=== PATIENT | female | born 1995 | race Caucasian/White ===

== ENCOUNTER 2017-06-17 08:58 | Emergency (ER) | payer OTHER, SELFPAY ==
[2017-06-17 09:09] VITALS: BP 130/97; PULSE 100; RESP 20; TEMP 36.8; O2SAT 100; BMI 26.5
[2017-06-17 09:18] LABS: Apearance,Urine Clear (Clear); Bilirubin,Urine Negative (Negative); Blood, Urine 3+ (Negative); Color,Urine Orange (Yellow); Glucose,Urine (UA) Negative (Negative); Ketones,Urine Negative (Negative); Protein,Urine Negative (Negative)
[2017-06-17 09:19] LABS: UTC Leukocyte Esterase,Urine 1+ (Negative); UTC Nitrate,Urine Positive (Negative); Urobilinogen,Urine 0.2 EU/dl (0.2)
--- NOTE | 2017-06-17 09:26 | HMH.EDUTC ---
[facility] [place] Clinical Impression: UTI (urinary tract infection) Qualifiers: Urinary tract infection type: acute cystitis Hematuria presence: with hematuria Qualified Code(s): N30.01 - Acute cystitis with hematuria Disposition: Home, Self-Care Condition on Discharge: Good Instructions: DI for Urinary Tract Infection (UTI) Additional Instructions: * increase fluids, Water and NOT soda or tea * Start antibiotic immediately and be sure to take as ordered for the FULL length of time although you should start to see improvement over the next 48 hours. * pyridium OR Azo as needed. NOT BOTH!!! Remember this will turn your urine ORANGE, this is normal but will stain whatever it gets on. this includes tears and contacts. Try not to wear contacts due to risk of staining orange. * You should not need the pyridium or azo longer than 48 hours. If so, follow up with primary care to review urine culture and ensure antibiotic is adequate * Be SURE to follow up anytime for new or worsening symptoms, AND in 48 hours for urine culture results AND in 10-14 days to repeat UA and ensure infection resolved and blood no longer present. * Call Dr. Barlow to discuss bleeding post nexplanon insertion. Not healthy to be using tampons all day, everyday for weeks at a time. Discussed TSS and the risks associated w/ prolonged tampon use. Encouraged to wear pads if possible but need to call and discuss bleeding with Dr. Barlow to ensure expected results. * Be sure to let your PCP (or whoever you follow up with) know we sent urine culture so they can request records and ensure you are on the appropriate antibiotic if you are not getting better or getting worse!!! Prescriptions: Sulfamethoxazole/Trimethoprim [Bactrim DS tablet] 1 each PO BID #14 tab Time of Disposition: 09:45 Medical Decision Making Vital Signs: 06/17/17 09:09 Temperature 98.2 F Temperature Source Temporal Artery Scan Pulse Rate [Right] 100 H Respiratory Rate 20 Blood Pressure [Right Arm] 130/97 Blood Pressure Mean [Right Arm] 108 Blood Pressure Source [Right Arm] Automatic Cuff Blood Pressure Position [Right Arm] Sitting 02 Sat by Pulse Oximetry 100 Oxygen Delivery Method Room Air - Lab Data Lab results reviewed: Yes: I reviewed the patient's lab results. Lab Results 06/17/17 09:15: Urine Color [place], Urine Appearance Clear, Urine pH 7.0, Ur Specific [place] 1.020, Urine Protein Negative, Urine Glucose (UA) Negative, Urine Ketones Negative, Urine Blood 3+, Urine Nitrate Positive A, Urine Bilirubin Negative, Urine Urobilinogen 0.2, Ur Leukocyte Esterase 1+ A Orders (Tests/Meds): ORDERS Category Date Time Status Urine Culture Stat Micro 06/17/17 09:16 Ordered - Amadeo Inquiry Pt receiving controlled substance: No [facility] [place] - General Stated complaint: poss UTI Time Seen by Provider: 06/17/17 09:26 Mode of Arrival: Ambulatory Source of Information: Patient Limitations: No Limitations Description of Symptoms (Recalled from Triage Doc. by RN): DYSURIA BEGAN YESTERDAY HEENT Symptoms (Recalled from RN notes): No Resp Symptoms (Recalled from RN notes): No Skin Symptoms (Recalled from RN notes): No MS Symptoms (Recalled from RN notes): No Functional Status (Recalled from RN notes): N - History of Present Illness Provider Complaint: c/o I think a UTI . Dysuria starting yesterday. Increased fluid intake. Seemed to help but woke up this morning w/ dysuria 10 times worse and associated w/ urinary frequency, urgency and hesitancy. Has taken both pyridium and azo this morning. Dysuria somewhat improved. Hx of UTIs. Last one over 3 months ago. Initially were contributed to not voiding after intercourse. Had nexplanon placed in Apr. Bleeding most days since. Wearing tampons frequently. Currently menstruating. Wondering if could be due to this. Has not discussed bleeding with OB, Dr. Barlow. - Related Data Previous Rx's Medication Instructions Recorded Sulfamet
--- NOTE | 2017-06-17 09:36 | ED_ITS ---
[facility] [place] Clinical Impression: UTI (urinary tract infection) Qualifiers: Urinary tract infection type: acute cystitis Hematuria presence: with hematuria Qualified Code(s): N30.01 - Acute cystitis with hematuria Disposition: Home, Self-Care Condition on Discharge: Good Instructions: DI for Urinary Tract Infection (UTI) Additional Instructions: * increase fluids, Water and NOT soda or tea * Start antibiotic immediately and be sure to take as ordered for the FULL length of time although you should start to see improvement over the next 48 hours. * pyridium OR Azo as needed. NOT BOTH!!! Remember this will turn your urine ORANGE, this is normal but will stain whatever it gets on. this includes tears and contacts. Try not to wear contacts due to risk of staining orange. * You should not need the pyridium or azo longer than 48 hours. If so, follow up with primary care to review urine culture and ensure antibiotic is adequate * Be SURE to follow up anytime for new or worsening symptoms, AND in 48 hours for urine culture results AND in 10-14 days to repeat UA and ensure infection resolved and blood no longer present. * Call Dr. Barlow to discuss bleeding post nexplanon insertion. Not healthy to be using tampons all day, everyday for weeks at a time. Discussed TSS and the risks associated w/ prolonged tampon use. Encouraged to wear pads if possible but need to call and discuss bleeding with Dr. Barlow to ensure expected results. * Be sure to let your PCP (or whoever you follow up with) know we sent urine culture so they can request records and ensure you are on the appropriate antibiotic if you are not getting better or getting worse!!! Prescriptions: Sulfamethoxazole/Trimethoprim [Bactrim DS tablet] 1 each PO BID #14 tab Time of Disposition: 09:45 Medical Decision Making Vital Signs: 06/17/17 09:09 Temperature 98.2 F Temperature Source Temporal Artery Scan Pulse Rate [Right] 100 H Respiratory Rate 20 Blood Pressure [Right Arm] 130/97 Blood Pressure Mean [Right Arm] 108 Blood Pressure Source [Right Arm] Automatic Cuff Blood Pressure Position [Right Arm] Sitting 02 Sat by Pulse Oximetry 100 Oxygen Delivery Method Room Air - Lab Data Lab results reviewed: Yes: I reviewed the patient's lab results. Lab Results 06/17/17 09:15: Urine Color [place], Urine Appearance Clear, Urine pH 7.0, Ur Specific [place] 1.020, Urine Protein Negative, Urine Glucose (UA) Negative, Urine Ketones Negative, Urine Blood 3+, Urine Nitrate Positive A, Urine Bilirubin Negative, Urine Urobilinogen 0.2, Ur Leukocyte Esterase 1+ A Orders (Tests/Meds): ORDERS Category Date Time Status Urine Culture Stat Micro 06/17/17 09:16 Ordered - Amadeo Inquiry Pt receiving controlled substance: No [facility] [place] - General Stated complaint: poss UTI Time Seen by Provider: 06/17/17 09:26 Mode of Arrival: Ambulatory Source of Information: Patient Limitations: No Limitations Description of Symptoms (Recalled from Triage Doc. by RN): DYSURIA BEGAN YESTERDAY HEENT Symptoms (Recalled from RN notes): No Resp Symptoms (Recalled from RN notes): No Skin Symptoms (Recalled from RN notes): No MS Symptoms (Recalled from RN notes): No Functional Status (Recalled from RN notes): N - History of Present Illness Provider Complaint: c/o I think a UTI . Dysuria starting yesterday. Increased fluid intake. Seemed to help but woke up this morning w/ dysuria 10 times worse and
== END 2017-06-17 09:51 | disposition home or self-care (01) ==
PROVIDERS: Emergency Provider Nurse Practitioner Family; Family Provider Emergency Medicine
DX: N30.01 Acute cystitis with hematuria (principal)
CPT/HCPCS: 81003; 87086; 99202

== ENCOUNTER 2018-10-19 13:41 | Emergency (ER) | payer OTHER, SELFPAY ==
[2018-10-19 13:53] VITALS: BP 133/82; PULSE 100; RESP 18; TEMP 37.2; O2SAT 100; BMI 26.5
--- NOTE | 2018-10-19 13:57 | HMH.EDUTC ---
[facility] [place] Impression: UTI (urinary tract infection) Qualifiers: Urinary tract infection type: site unspecified Hematuria presence: with hematuria Qualified Code(s): N39.0 - Urinary tract infection, site not specified; R31.9 - Hematuria, unspecified Disposition: Home, Self-Care Condition on Discharge: Good Instructions: Urinary Tract Infection, DI for Urinary Tract Infection (UTI), Trimethoprim/Sulfamethoxazole (Alternative Therapy) Additional Instructions: *Increase fluids. Water not Soda or Tea *Start antibiotic immediately and be sure to take as ordered for the FULL length of time although you should start to see improvement over the next 48 hours *Pyridium as needed Remember this medication will turn your urine [place]. This is normal but it will stain what ever it gets on *You should not use Pyridium for more than 48 hours. If so , follow up with your primary physician to review urine culture and ensure that antibiotic is adequate for infection *Be SURE to follow up anytime for new or worsening symptoms with your family doctor. AND in 48 hours for urine culture results with your family doctor, if you do not have a doctor then you may call back to the [facility] for urine culture results and further treatment. We do recommend that you choose and establish care with a Primary Care Physician. AND follow up with them in 10-14 days to repeat UA to ensure infection is resolved and blood no longer present *Be sure to let your PCP know that we sent urine cultures from the [facility] so they can follow up to ensure that you area the on the correct antibiotic Call your doctor office and make appointment for 48 hours (2 days from today) to follow up and get the results of your urine culture and further treatment Straight to ER if any life threatening symptoms Prescriptions: Sulfamethoxazole/Trimethoprim [Bactrim DS tablet] 1 each PO BID 10 Days #20 tab Phenazopyridine HCl [Pyridium 200mg Tablet] 200 pow PO TID #6 tab Referrals: India Kessler PA [Primary Care Provider] - As needed Time of Disposition: 14:07 Medical Decision Making - Amadeo Inquiry Pt receiving controlled substance: No Amadeo was queried for this patient: No Vital Signs: 10/19/18 13:53 Temperature 99.0 F Temperature Source Oral Pulse Rate [Left Apical] 100 H Respiratory Rate 18 Blood Pressure [Right Arm] 133/82 Blood Pressure Mean [Right Arm] 99 02 Sat by Pulse Oximetry 100 Oxygen Delivery Method Room Air - Lab Data Lab results reviewed: Yes: I reviewed the patient's lab results. Lab Results 10/19/18 13:44: Urine Color [place], Urine Appearance Cloudy, Urine pH 8.5, Ur Specific [place] 1.015, Urine Protein 2+, Urine Glucose (UA) Negative, Urine Ketones Negative, Urine Blood Trace, Urine Nitrate Positive A, Urine Bilirubin Negative, Urine Urobilinogen 0.2, Ur Leukocyte Esterase Negative Orders (Tests/Meds): ORDERS Category Date Time Status Urine Culture Stat Micro 10/19/18 14:04 Uncollected [facility] [place] - General Stated complaint: pain when urinates Time Seen by Provider: 10/19/18 13:57 Mode of Arrival: Ambulatory Source of Information: Patient Limitations: No Limitations Description of Symptoms (Recalled from Triage Doc. by RN): PT C/O POSSIBLE UTI HEENT Symptoms (Recalled from RN notes): No Resp Symptoms (Recalled from RN notes): No Skin Symptoms (Recalled from RN notes): No MS Symptoms (Recalled from RN notes): No Functional Status (Recalled from RN notes): N/A - History of Present Illness Provider Complaint: Patient states that she thinks she may have a UTI state that she has been having burning with urination and feeling of urgency and frequency States that symptoms started this morning and has continued to get worse as the day went on - Related Data Previous Rx's Medication Instructions Recorded norethindrone 1 mg-ethinyl 1 tab PO DAILY #28 tab 08/03/18 estradiol 10 mcg (24)-iron 10 mcg(2) tablet Phenazopyridi
[2018-10-19 14:01] LABS: Apearance,Urine Cloudy (Clear); Color,Urine Yellow (Yellow); PH,Urine 8.5 (5.0-8.5); Specific Gravity, Urine 1.015 (1.005-1.030)
[2018-10-19 14:02] LABS: Bilirubin,Urine Negative (Negative); Blood, Urine Trace (Negative); Glucose,Urine (UA) Negative (Negative); Ketones,Urine Negative (Negative); Protein,Urine 2+ (Negative)
[2018-10-19 14:03] LABS: UTC Leukocyte Esterase,Urine Negative (Negative); Urobilinogen,Urine 0.2 EU/dl (0.2)
[2018-10-19 14:04] LABS: UTC Nitrate,Urine Positive (Negative)
[2018-10-19 14:12] VITALS: BP 126/66; PULSE 65; RESP 18; TEMP 36.6; O2SAT 100
== END 2018-10-19 14:13 | disposition home or self-care (01) ==
PROVIDERS: Emergency Provider Nurse Practitioner; PCP Physician Assistant
DX: N39.0 Urinary tract infection, site not specified (principal)
CPT/HCPCS: 81003; 87086; 87088; 87186; 99201

== ENCOUNTER 2019-12-06 16:03 | Emergency (ER) | payer OTHER, SELFPAY ==
[2019-12-06 16:30] VITALS: BP 136/97; PULSE 90; RESP 21; TEMP 36.8; O2SAT 99; BMI 26.5
--- NOTE | 2019-12-06 16:30 | HMH.EDUTC ---
[facility] [place] Clinical Impression: UTI (urinary tract infection) Qualifiers: Urinary tract infection type: site unspecified Hematuria presence: with hematuria Qualified Code(s): N39.0 - Urinary tract infection, site not specified Disposition: Home, Self-Care Condition on Discharge: Good Instructions: Urinary Tract Infection, DI for Urinary Tract Infection (UTI) Additional Instructions: Drink plenty of fluids. Take tylenol or ibuprofen for pain or fever. Take the medications as directed. Follow up with your regular doctor. GO TO THE ER FOR ANY WORSENING SYMPTOMS The pyridium will make your urine turn orange, this is an expected side effect. It will stain your clothes if it comes into contact with them. Prescriptions: Sulfamethoxazole/Trimethoprim [Bactrim DS tablet] 1 each PO BID 7 Days #14 tab Transmission Status: Received by [id number] Fluconazole [Diflucan 150mg tab] 150 mg PO ONCE #1 tab Transmission Status: Received by [id number] Phenazopyridine HCl [Pyridium 200mg Tablet] 200 pow PO TID #6 tab Transmission Status: Received by [id number] Referrals: India Kessler PA [Primary Care Provider] - Forms: Work/School Release Time of Disposition: 16:36 Medical Decision Making - Medical Records Medical records reviewed: No: I reviewed the patient's medical records. - Amadeo Inquiry Pt receiving controlled substance: No Vital Signs: 12/06/19 16:30 12/06/19 16:40 Temperature 98.2 F 98.2 F Temperature Source Oral Pulse Rate 90 Pulse Rate [Right Brachial] 90 Respiratory Rate 21 21 Blood Pressure 136/97 H Blood Pressure [Right Arm] 136/97 H Blood Pressure Mean [Right Arm] 110 Blood Pressure Source [Right Arm] Automatic Cuff Blood Pressure Position [Right Arm] Sitting 02 Sat by Pulse Oximetry 99 Oxygen Delivery Method Room Air - Lab Data Lab Results 12/06/19 16:36: Urine Color [place], Urine Appearance Cloudy, Urine pH 6.5, Ur Specific [place] 1.020, Urine Protein Negative, Urine Glucose (UA) Negative, Urine Ketones Negative, Urine Blood Trace, Urine Nitrate Negative, Urine Bilirubin Negative, Urine Urobilinogen 0.2, Ur Leukocyte Esterase 1+ A Orders (Tests/Meds): ORDERS Category Date Time Status Urine Culture Stat Micro 12/06/19 16:10 Results [facility] [place]PI - General Stated complaint: Possible UTI Time Seen by Provider: 12/06/19 16:31 - History of Present Illness Provider Complaint: She states that she has had urinary frequency and dysuria for the past 2 days. - Related Data Home Medications Medication Instructions Recorded Confirmed norethindrone-e.estradioL-iron [Lo 1 tab PO DAILY 07/23/19 12/06/19 Loestrin Fe] Previous Rx's Medication Instructions Recorded Fluconazole [Diflucan 150mg tab] 150 mg PO ONCE #1 tab 12/06/19 Phenazopyridine HCl [Pyridium 200 pow PO TID #6 tab 12/06/19 200mg Tablet] Sulfamethoxazole/Trimethoprim 1 each PO BID 7 Days #14 tab 12/06/19 [Bactrim DS tablet] Allergies Allergy/AdvReac Type Severity Reaction Status Date / Time ciprofloxacin [From Cipro] Allergy Verified 08/02/19 15:17 nitrofurantoin Allergy Verified 08/02/19 15:17 [From Macrobid] [facility] History - Hepatitis A Screen Attestation statement:: This patient has been screened for Hepatitis A risk factors. I have reviewed the patient's past medical history: Yes Medical History: Denies:: Anxiety, Cancer, Diabetes Mellitus Type 1, Diabetes Mellitus Type 2, Hypertension, MRSA Other Surgeries: Yes: Other Amputation: No Fractures: No Comment: wisdom teeth - Social History Smoking Status: Never smoker Alcohol Intake: never Alcohol Intake Frequency:: other Substance Use Type: denies use Occupational Status: other Household Members: spouse - Psychiatric History Pschychiatric History:: Denies:: Anxiety Family Hx:: Hypertension ROS Obtained: Yes All systems reviewed & no
[2019-12-06 16:38] LABS: Apearance,Urine Cloudy (Clear); Bilirubin,Urine Negative (Negative); Blood, Urine Trace (Negative); Color,Urine Yellow (Yellow); Glucose,Urine (UA) Negative (Negative); Ketones,Urine Negative (Negative); PH,Urine 6.5 (5.0-8.5); Protein,Urine Negative (Negative); Urobilinogen,Urine 0.2 EU/dl (0.2)
[2019-12-06 16:39] LABS: UTC Leukocyte Esterase,Urine 1+ (Negative); UTC Nitrate,Urine Negative (Negative)
[2019-12-06 16:40] VITALS: BP 136/97; PULSE 90; RESP 21; TEMP 36.8; O2SAT 99
== END 2019-12-06 16:43 | disposition home or self-care (01) ==
PROVIDERS: Emergency Provider Nurse Practitioner Family; PCP Physician Assistant
DX: N30.00 Acute cystitis without hematuria (principal)
CPT/HCPCS: 81003; 87086; 87088; 87186; 99201

== ENCOUNTER → 2020-06-05 16:55 | Outpatient (CLI) | payer OTHER, SELFPAY | PROVIDERS: Visit Provider Physician Assistant | DX: N39.0 Urinary tract infection, site not specified (principal) | CPT/HCPCS: 87086; 87088; 87186 ==

== ENCOUNTER → 2020-12-05 16:11 | Outpatient (CLI) | payer OTHER, SELFPAY ==
[2020-12-05 17:36] LABS: HCG,Quantitative 343 mIU/ml (0-5.42)
== END ==
PROVIDERS: Visit Provider Nurse Practitioner Obstetrics & Gynecology
DX: Z34.90 Encounter for supervision of normal pregnancy, unspecified, unspecified trimester (principal)
CPT/HCPCS: 36415; 84702

== ENCOUNTER → 2020-12-07 11:47 | Outpatient (CLI) | payer OTHER, SELFPAY ==
[2020-12-07 13:11] LABS: HCG,Quantitative 1095 mIU/ml (0-5.42)
== END ==
PROVIDERS: Visit Provider Physician Assistant
DX: Z32.01 Encounter for pregnancy test, result positive (principal)
CPT/HCPCS: 36415; 84702

== ENCOUNTER → 2021-01-04 14:10 | Outpatient (CLI) | payer OTHER, SELFPAY ==
--- NOTE | 2021-01-04 14:10 | US_ITS ---
PROCEDURE: US OB <= 14 WEEKS FETUS CLINICAL INDICATION: US OB before 14 wks for DATES COMPARISON: No exams were available for comparison FINDINGS: An intrauterine gestational sac is present with a pole with a crown-rump length of 1.41cm correlating to gestational age of 7weeks 5days. heart tones are present with an FHR of 160bpm. Yolk sac is noted. 2 cm left ovarian cyst IMPRESSION: Live IUP at 7 weeks 5 days Estimated due date by Ultrasound is 08/18/2021 Dictated by: Lucius Griffin MD 01/04/2021 17:00 Lucius Griffin MD in OV 01/04/2021 17:00
== END ==
PROVIDERS: PCP Physician Assistant; Visit Provider Nurse Practitioner Obstetrics & Gynecology
DX: O26.841 Uterine size-date discrepancy, first trimester (principal)
CPT/HCPCS: 76801

== ENCOUNTER → 2021-01-20 13:52 | Outpatient (CLI) | payer OTHER, SELFPAY | PROVIDERS: PCP Physician Assistant; Visit Provider Nurse Practitioner Obstetrics & Gynecology | DX: Z34.90 Encounter for supervision of normal pregnancy, unspecified, unspecified trimester (principal) | CPT/HCPCS: 36415; 85025; 86592; 86695; 86703; 86762; 86790; 86850; 87340; 87380; G0432 ==

== ENCOUNTER → 2021-02-01 11:22 | Outpatient (CLI) | payer OTHER, SELFPAY ==
[2021-02-01 11:45] LABS: Basophils # 0.1 K/mm3 (0-0.2); Eosinophils % 0.4 % (0.1-12.0); Hematocrit 43.1 % (37.0-47.0); Hemoglobin 14.2 g/dL (12.2-16.2); Lymphocytes # 2.3 K/mm3 (0.7-4.5); Lymphocytes % 37.3 % (10-50); Mean Corpuscular Hemoglobin 32.1 pg (27.0-31.2); Mean Corpuscular Volume 97.5 fl (81-99); Mean Platelet Volume 8.3 fl (7.4-10.4); Monocytes # 0.2 K/mm3 (0.1-1.0); Monocytes % 3.4 % (1.7-9.3); Neutrophils # 3.5 K/mm3 (1.8-7.8); Neutrophils % 57.7 % (37.0-80.0); Platelet Count 375 K/mm3 (142-424); Red Blood Count 4.42 M/mm3 (4.20-5.40); Red Cell Distribution Width 12.5 % (11.5-17.5); White Blood Count 6.1 K/mm3 (4.8-10.8)
[2021-02-01 13:23] LABS: Anion Gap 18.2 mEq/L (5-15); Blood Urea Nitrogen 6 mg/dl (7-17); Calcium 9.4 mg/dl (8.4-10.2); Carbon Dioxide 22 mmol/L (22.0-30.0); Chloride 102 mmol/L (98-107); Estimated Glomerular Filt Rate 88 ml/min (>60); GFR (African American) 107 ML/MIN (>60); Glucose 133 mg/dl (74-100); Potassium 4.2 mmoL/L (3.5-5.1); Sodium 138 mmol/L (136-145)
== END ==
PROVIDERS: Visit Provider Nurse Practitioner Obstetrics & Gynecology
DX: O03.9 Complete or unspecified spontaneous abortion without complication (principal)
CPT/HCPCS: 36415; 80048; 85025; U0003

== ENCOUNTER → 2021-02-01 14:17 | Outpatient (CLI) | payer OTHER, SELFPAY ==
--- NOTE | 2021-02-01 14:17 | US_ITS ---
PROCEDURE: US OB TRANSVAGINAL CLINICAL INDICATION: confirm or r/o miscarriage COMPARISON: US US OB <= 14 WEEKS FETUS from 01/04/2021 FINDINGS: An intrauterine gestational sac is present with a pole with a crown-rump length of 1.96cm correlating to gestational age of 9weeks 4days. No heart tones are demonstrated. Gestational sac is enlarged with some irregularity and is low in the uterus. Minimal amount of fluid noted in the cervix. 2 cm left ovarian cyst. No cul-de-sac fluid apparent. IMPRESSION: Nonviable intrauterine gestation Small amount of endocervical fluid Dictated by: Lucius Griffin MD 02/01/2021 17:18 Lucius Griffin MD in OV 02/01/2021 17:18
== END ==
PROVIDERS: PCP Physician Assistant; Visit Provider Nurse Practitioner Obstetrics & Gynecology
DX: O20.0 Threatened abortion (principal); Z3A.11 11 weeks gestation of pregnancy
CPT/HCPCS: 76817

== ENCOUNTER 2021-02-02 07:15 | Day surgery (SDC) | payer OTHER, SELFPAY ==
[2021-02-01 10:20] VITALS: BMI 28.3
[2021-02-02] VITALS (11 sets, daily range): BP systolic 113–144; BP diastolic 55–81; PULSE 81–101; RESP 10–18; TEMP 36.7–37.1; O2SAT 95–99
--- NOTE | 2021-02-02 07:42 | HMH.ANESCL ---
[facility] Anesthesia Checklist - Patient Identification Patient Identification: Arm Band - Structural Data Admitted From: Home Planned Operative Procedure/s: D&E with [place] Suction Consent for Planned Operative Procedure(s) Verified: Yes Verified Documents: Surgical Consent, History and Physical - NPO Status Verified Time NPO: 00:00 - Additional verifications Anesthesia Reactions: No Hx Blood Transfusions: No Blood Transfusion Reaction: No - Airway Assessment C-Spine Mobility Assessed: Yes (mp2) TMJ Mobility Assessed: Yes Dentition: Good Dentition - Neurological Assessment Level of Consciousness: Awake, Alert - Anesthesia Plan Anesthesia Risk discussed: Yes Anesthesia Plan: Verified ASA Class: I Anesthesia Type: General [facility] History I have reviewed the patient's past medical history: Yes Medical History: Reports:: Anxiety Denies:: Cancer, Diabetes Mellitus Type 1, Diabetes Mellitus Type 2, Hypertension, Internal Pacemaker, MRSA, Seizures *Have you ever received a pneumonia vaccine?: No *Have you received a flu vaccine this season?: Yes Other Medical History: Denies: Blood Transfusion Reaction Anesthesia experience/problems:: nac Other Surgeries: Yes: Other. No: Pacemaker Amputation: No Fractures: No - *Social History Last grade of school completed: High school graduate Smoking Status: Never smoker Alcohol Intake: never Alcohol Intake Frequency:: other Substance Use Type: denies use *Occupational Status:: employed Housing: house Household Members: significant other *Travel in the last 8 weeks: None - Psychiatric History Pschychiatric History:: Reports:: Anxiety Family Hx:: No significant family history
--- NOTE | 2021-02-02 09:04 | P.OP_ITS ---
Date of procedure: 02/02/21 Pre-op Diagnosis:: Missed Post-op Diagnosis:: Missed Procedure performed:: Dilation and evacuation with Saunders suction Surgeon:: Clayton Barlow MD [employer]:: Milton Humphrey Anesthesia: LMA Estimated blood loss (mL): 50 Clinical Note:: She is a 26-year-old 1 para 0 at 12 weeks gestational age. She had an ultrasound in my office that showed an 8-week fetus with no heart rate activity. There is no Doppler flow. I had this confirmed with an ultrasound in radiology. As result that she was offered dilation evacuation with Saunders suction. Operative findings:: She had an anteverted bulky uterus consistent with her gestational age. Operative note:: She was taken to the operating room where LMA anesthesia was found be adequate. She is prepped draped normal sterile fashion lithotomy position. A weighted speculum was placed in vagina and the anterior lip of the cervix was grasped with a tenaculum. The cervix was dilated with Hagan dilators to 10 mm. I then inserted a curved Saunders 10 mm suction curette and evacuated the uteri ne contents. This was followed by gentle curettage. She tolerated procedure well and was taken to recovery room in excellent condition. All sponge, instrument and needle counts were correct. The e stimated blood loss was approximately 50 cc. Condition: stable Disposition: PACU Specimens:: Products of conception Complications:: None
--- NOTE | 2021-02-02 09:11 | P.PN_ITS ---
[facility] Anesthesia Record Part I Intake, IV Amount: 300 Estimated blood loss (mL): 50 Urine output (mL): 0 Blood Pressure: 113/55 SaO2: 95 Pulse Rate: 90 Respiratory Rate: 10 Temperature: 98.2 F Patient is:: Drowsy, Oral/Nasal airway Stable to PACU at:: 09:10
--- NOTE | 2021-02-02 10:52 | P.PN_ITS ---
[facility] Anesthesia Record Part II Discharge Time: 09:40 Destination: Surgical Day Care (OP Surgery) PACU nurse assessment reviewed?: Yes Patient Condition:: Good Anesthesia Complications:: None Swallowing reflex intact?: Yes Cyanosis?: No Blood Pressure: 125/76 Pulse Rate: 84 Temperature: 98.2 F Mental Status: Alert & Oriented Pain level:: 0 Nausea and/or vomitting:: None Intake, IV Amount: 0
== END 2021-02-02 10:30 | disposition home or self-care (01) ==
LOC: OR 07:16
PROVIDERS: PCP Physician Assistant; Visit Provider Nurse Practitioner Obstetrics & Gynecology
PROC: (CPT 59820; principal; 2021-02-02 08:45)
DX: O02.1 Missed abortion (principal); Z3A.11 11 weeks gestation of pregnancy; F41.9 Anxiety disorder, unspecified; Z88.8 Allergy status to other drugs, medicaments and biological substances
CPT/HCPCS: 59820; 96374; J2405

== ENCOUNTER 2021-02-14 10:05 | Emergency (ER) | payer OTHER, SELFPAY ==
[2021-02-14 10:36] VITALS: BP 147/91; PULSE 85; RESP 19; TEMP 37; O2SAT 99; BMI 27.4
[2021-02-14 10:44] LABS: Apearance,Urine Clear (Clear); Blood, Urine Negative (Negative); Color,Urine Yellow (Yellow); Glucose,Urine (UA) Negative (Negative); Ketones,Urine Negative (Negative); PH,Urine 7.5 (5.0-8.5); Protein,Urine Negative (Negative); Specific Gravity, Urine 1.015 (1.005-1.030)
[2021-02-14 10:45] LABS: Bilirubin,Urine Negative (Negative); UTC Leukocyte Esterase,Urine Negative (Negative); UTC Nitrate,Urine Negative (Negative); Urobilinogen,Urine 0.2 EU/dl (0.2)
--- NOTE | 2021-02-14 11:04 | HMH.EDUTC ---
[facility] [place] Disposition Clinical Impression: Acute cystitis Qualifiers: Hematuria presence: without hematuria Qualified Code(s): N30.00 - Acute cystitis without hematuria Disposition: Home, Self-Care Condition on Discharge: Good Instructions: Acute Cystitis Additional Instructions: *Increase fluids. Water not Soda or Tea *Start antibiotic immediately and be sure to take as ordered for the FULL length of time although you should start to see improvement over the next 48 hours AND follow up with them in 10-14 days to repeat UA to ensure infection is resolved and blood no longer present Return if needed Straight to ER if any pelvic pain, fever, chills, or body aches Call your doctor office and make appointment for 48 hours (2 days from today) to follow up and get the results of your urine culture and further treatment Prescriptions: cephALEXin [cephALEXin 500mg capsule*] 500 mg PO BID 7 Days #14 cap Transmission Status: Received by [id number] Referrals: India Kessler PA [Primary Care Provider] - As needed Time of Disposition: 11:31 Medical Decision Making - Amadeo Inquiry Pt receiving controlled substance: No Amadeo was queried for this patient: No Vital Signs: 02/14/21 10:36 Temperature 98.6 F Temperature Source Oral Pulse Rate [Left] 85 Respiratory Rate 19 Blood Pressure [Right Arm] 147/91 H Blood Pressure Mean [Right Arm] 109 02 Sat by Pulse Oximetry 99 - Lab Data Lab Results 02/14/21 10:20: Urine Color Yellow, Urine Appearance Clear, Urine pH 7.5, Ur Specific [place] 1.015, Urine Protein Negative, Urine Glucose (UA) Negative, Urine Ketones Negative, Urine Blood Negative, Urine Nitrate Negative, Urine Bilirubin Negative, Urine Urobilinogen 0.2, Ur Leukocyte Esterase Negative [facility] [place] HPI - General Stated complaint: possible kidney infection Time Seen by Provider: 02/14/21 11:04 Mode of Arrival: Ambulatory Source of Information: Patient Limitations: No Limitations Description of Symptoms (Recalled from Triage Doc. by RN): pt c/o lower back pain, trouble urinating since morning. pt states she had a D & C 02/02. she still having some vaginal bleeding from [facility]. HEENT Symptoms (Recalled from RN notes): No Resp Symptoms (Recalled from RN notes): No Skin Symptoms (Recalled from RN notes): No MS Symptoms (Recalled from RN notes): Yes (lower back pain) Functional Status (Recalled from RN notes): na - History of Present Illness Provider Complaint: Ladan states that she had a D&C on 02/02 State that she painted on Friday but didnt have any pain but today she has been having the feeling that she needs to Urinate but then only going small amount and feels like she is uriniating more often and havign achy like feeling on her left side of back around her kidney area Denies fever, denies pelvic pain and denies N/V - Related Data Home Medications Medication Instructions Recorded Confirmed prenat.vits,moustapha,[id number] 1 tab PO DAILY 01/01/21 01/31/21 Previous Rx's Medication Instructions Recorded Oxycodone HCl/Acetaminophen 1 tab PO Q4-6H PRN #6 tab 02/02/21 [Percocet 5/325mg tablet] cephALEXin [cephALEXin 500mg 500 mg PO BID 7 Days #14 cap 02/14/21 capsule*] Allergies Allergy/AdvReac Type Severity Reaction Status Date / Time ciprofloxacin [From Cipro] Allergy Verified 01/31/21 16:26 nitrofurantoin Allergy Verified 01/31/21 16:26 [From Macrobid] - Worker's Comp Is this a Worker's Comp case?: No [facility] History - Hepatitis A Screen Drug use history?: No High risk sexual behaviors?: No History of sexually transmitted infection?: No Currently employed?: No Childcare worker?: No Do you have indoor plumbing?: Yes Do you have electricity?: Yes Attestation statement:: This patient has been screened for Hepatitis A risk factors. I have reviewed the patient's past medical history: Yes Medical History: Reports:: Anxiety Denies:: Cancer, Diabe
[2021-02-14 11:57] VITALS: BP 147/91; PULSE 85; RESP 19; TEMP 37
== END 2021-02-14 11:59 | disposition home or self-care (01) ==
PROVIDERS: Emergency Provider Nurse Practitioner; PCP Physician Assistant
DX: N30.00 Acute cystitis without hematuria (principal); F41.9 Anxiety disorder, unspecified
CPT/HCPCS: 81003; 99202; G0463

== ENCOUNTER → 2021-02-19 16:05 | Outpatient (CLI) | payer OTHER, SELFPAY ==
--- NOTE | 2021-02-19 16:08 | CT_ITS ---
PROCEDURE: CT ABDOMEN PELVIS WO CON CLINICAL INDICATION: left flank pain, hematuria COMPARISON: No exams were available for comparison TECHNIQUE: Axial images obtained with sagittal and coronal reformats. All CT scans at the facility use one or more dose reduction, viz: automated exposure control, ma/kV adjustment per patient size (including targeted exams where dose is matched to indication, i.e. head), or iterative reconstruction technique. FINDINGS: LOWER THORAX: No acute finding ABDOMEN & PELVIS: The liver, spleen, adrenal glands, and pancreas have an unremarkable appearance. No radiopaque gallstones apparent. There are numerous small bilateral renal calculi which are 3 mm or less. There is mild left hydronephrosis and hydroureter secondary to a 3 mm calculus at the left ureterovesical junction. No intestinal obstruction or free air. There is a moderate amount of retained colonic feces with small punctate hyperdensities noted within the fecal material. No evidence of appendicitis. Small hyperdensities also noted in the appendix and could be related to ingested material or small appendicoliths. There are few small mesenteric lymph nodes. There is a small umbilical hernia containing fat. There is mild lumbar scoliosis convex left. Small sclerotic focus is present in the right super acetabular region may be due to a bone island. IMPRESSION: 3 mm left ureterovesical junction stone causing mild left hydronephrosis and ureteral dilatation. Bilateral nephrolithiasis Dictated by: Lucius Griffin MD 02/20/2021 08:00 Lucius Griffin MD in [place] 02/20/2021 08:00
== END ==
PROVIDERS: PCP Physician Assistant; Visit Provider Physician Assistant
DX: R10.9 Unspecified abdominal pain (principal); N39.0 Urinary tract infection, site not specified
CPT/HCPCS: 74176; 87086

== ENCOUNTER → 2021-04-17 17:19 | Outpatient (CLI) | payer OTHER, SELFPAY ==
[2021-04-17 19:17] LABS: HCG,Quantitative 80 mIU/ml (0-5.42)
== END ==
PROVIDERS: Visit Provider Nurse Practitioner Obstetrics & Gynecology
DX: N92.6 Irregular menstruation, unspecified (principal)
CPT/HCPCS: 36415; 84702

== ENCOUNTER → 2021-04-20 10:03 | Outpatient (CLI) | payer OTHER, SELFPAY ==
[2021-04-20 11:01] LABS: HCG,Quantitative 280 mIU/ml (0-5.42)
== END ==
PROVIDERS: Visit Provider Nurse Practitioner Obstetrics & Gynecology
DX: Z32.00 Encounter for pregnancy test, result unknown (principal)
CPT/HCPCS: 36415; 84702

== ENCOUNTER → 2021-05-21 12:43 | Outpatient (CLI) | payer OTHER, SELFPAY ==
--- NOTE | 2021-05-21 12:43 | US_ITS ---
PROCEDURE: US OB <= 14 WEEKS FETUS CLINICAL INDICATION: US OB BEFORE 14 wks-Dates/Confirmation COMPARISON: US US OB TRANSVAGINAL from 02/01/2021 FINDINGS: An intrauterine gestational sac is present with a pole with a crown-rump length of 1.94cm correlating to gestational age of 8weeks 4days. heart tones are present with an FHR of 174bpm. Yolk sac is noted. Unremarkable adnexa. No cul-de-sac fluid IMPRESSION: Live IUP at 8 weeks 4 days Estimated due date by Ultrasound is 12/27/2021 Dictated by: Lucius Griffin MD 05/21/2021 15:36 Lucius Griffin MD in [place] 05/21/2021 15:36
== END ==
PROVIDERS: PCP Physician Assistant; Visit Provider Nurse Practitioner Obstetrics & Gynecology
DX: O26.841 Uterine size-date discrepancy, first trimester (principal)
CPT/HCPCS: 76801

== ENCOUNTER → 2021-05-26 12:28 | Outpatient (CLI) | payer OTHER, SELFPAY ==
[2021-05-26 12:58] LABS: Basophils # 0.1 K/mm3 (0-0.2); Eosinophils # 0.2 K/mm3 (0.0-0.4); Hematocrit 44.2 % (37.0-47.0); Hemoglobin 14.3 g/dL (12.2-16.2); Lymphocytes # 2.2 K/mm3 (0.7-4.5); Lymphocytes % 21.1 % (10-50); Mean Corpuscular HGB Conc 32.4 g/dL (31.8-35.4); Mean Corpuscular Hemoglobin 31.8 pg (27.0-31.2); Mean Corpuscular Volume 98.1 fl (81-99); Mean Platelet Volume 8.9 fl (7.4-10.4); Monocytes # 0.3 K/mm3 (0.1-1.0); Monocytes % 2.7 % (1.7-9.3); Neutrophils # 7.6 K/mm3 (1.8-7.8); Neutrophils % 73.2 % (37.0-80.0); Platelet Count 339 K/mm3 (142-424); Red Blood Count 4.51 M/mm3 (4.20-5.40); Red Cell Distribution Width 12.6 % (11.5-17.5); White Blood Count 10.3 K/mm3 (4.8-10.8)
[2021-05-27 08:52] LABS: HIV Screen 4th Generation wRfx Non Reactive (Non Reactive); Hepatitis B Surface Antigen Negative (Negative); Hepatitis C Antibody <0.1 s/co ratio (0.0-0.9)
[2021-05-27 09:17] LABS: HSV 1 IgG, Type Spec 7.81 index (0.00-0.90); HSV 2 IgG, Type Spec <0.91 index (0.00-0.90); Rubella Antibodies, IgG 1.69 index (Immune >0.99)
[2021-05-27 10:13] LABS: Rapid Plasma Reagin Ab Titer Non Reactive (NonRea<1:1)
== END ==
PROVIDERS: Visit Provider Nurse Practitioner Obstetrics & Gynecology
DX: Z34.90 Encounter for supervision of normal pregnancy, unspecified, unspecified trimester (principal)
CPT/HCPCS: 36415; 84702; 85025; 86592; 86695; 86703; 86762; 86790; 86850; 87340; 87380; G0432

== ENCOUNTER → 2021-06-18 08:32 | Outpatient (CLI) | payer OTHER, SELFPAY | PROVIDERS: PCP Physician Assistant; Visit Provider Nurse Practitioner Obstetrics & Gynecology | DX: Z34.90 Encounter for supervision of normal pregnancy, unspecified, unspecified trimester (principal); U07.1 COVID-19 | CPT/HCPCS: C9803; U0003; U0005 ==

== ENCOUNTER → 2021-07-18 14:59 | Outpatient (CLI) | payer OTHER, SELFPAY ==
--- NOTE | 2021-07-18 15:00 | US_ITS ---
FINAL REPORT CLINICAL HISTORY: short cervix/ fluid check wants( TRANSVAGINAL) FINDINGS: TRANSVAGINAL ULTRASOUND Single intrauterine is present. Cardiac activity is confirmed at 160 beats per minute. No gross anomalies seen. Appropriate amount of amnionic fluid is present. Placental is low-lying. There is no definite previa. The cervix measures up to 3.5 cm in maximal length and 2.7 cm and minimal dimensions. There is a small amount of fluid within the cervical canal. The fetus is active. Growth parameters are as follows: BPD 3.5 cm consistent with 16 weeks 6 days OFD: 4.8 cm consistent with 17 weeks 3 days Head circumference 13.1 cm consistent with 16 weeks 5 days Abdominal circumference 10.9 cm consistent with 16 weeks 6 days Femur length 2.4 cm consistent with 17 weeks 1 days Estimated weight: 174 g Growth percentile: 47% Estimated gestational age 17 weeks 0 days HC/AC 1.20 CI: 73% FL/BPD: 68% FL/AC: 21% IMPRESSION: Single living IUP with estimated gestational age of 17 weeks 0 days. Reviewed, Interpreted and Dictated by Robby Herring MD Transcribed by Nelson Campos Authenticated by Robby Herring MD on 07/19/2021 08:38:[address] [facility]
== END ==
PROVIDERS: PCP Physician Assistant; Visit Provider Nurse Practitioner Obstetrics & Gynecology
DX: O26.879 Cervical shortening, unspecified trimester (principal)
CPT/HCPCS: 76816

== ENCOUNTER 2021-08-04 09:36 | Emergency (ER) | payer OTHER, SELFPAY ==
[2021-08-04 09:37] VITALS: BP 115/76; PULSE 88; RESP 16; TEMP 36.9; O2SAT 98; BMI 31.5
[2021-08-04 09:55] LABS: UTC Strep Screen (Rapid) Positive (Negative)
--- NOTE | 2021-08-04 10:23 | HMH.EDUTC ---
[facility] [place] Disposition Clinical Impression: Strep throat Disposition: Home, Self-Care Condition on Discharge: Good Instructions: Strep Throat, DI for Strep Throat Additional Instructions: *Monitor Temp, Over the counter Motrin or Tylenol as directed/as needed Tylenol every 4 hours and Motrin every 6 hours (as long as your family doctor has told you that you can take it) for fever or pain. and straight to ER if unable to lower temp less than 101.0 after medication given *Warm salt water gargles may help to soothe the throat *Throat Lozenges *Warm fluids like tea with honey may help to soothe the throat *Sleep elevated *Humidifier/Vaporizer *If you did not take Penicillin shot or was unable to, start taking antibiotic immediately and make sure that you take it for the FULL length of time although you should start to feel better in 24-48 hours *change toothbrush and toothpaste 24-48 hours after starting to take antibiotics so you do not reinfect yourself Monitor Temp. Tylenol and/or Ibuprofen as needed. ER if fever is no less than 101 despite alternating Tylenol and Ibuprofen * Encourage fluids, water, Gatorade, powerade, pedialyte if infant/toddler/or child *Cold fluids, popsicles and ice cream may feel good on his throat Follow up IMMEDIATELY for new or worsening symptoms or no Noticeable improvement over the next 48-72 hours. 911 for difficulty breathing or swallowing Prescriptions: Amoxicillin [Amoxicillin 500mg Cap] 500 mg PO BID 10 Days #20 cap Transmission Status: Pending to [id number] Referrals: India Kessler PA [Primary Care Provider] - Time of Disposition: 10:32 Medical Decision Making - Amadeo Inquiry Pt receiving controlled substance: No Amadeo was queried for this patient: No Vital Signs: 08/04/21 09:37 08/04/21 10:29 Temperature 98.4 F 98.4 F Temperature Source Oral Oral Pulse Rate 87 Pulse Rate [Right] 88 Respiratory Rate 16 16 Blood Pressure 115/76 Blood Pressure [Right Arm] 115/76 Blood Pressure Mean [Right Arm] 89 Blood Pressure Source Automatic Cuff Blood Pressure Source [Right Arm] Automatic Cuff Blood Pressure Position Sitting Blood Pressure Position [Right Arm] Sitting 02 Sat by Pulse Oximetry 98 Oxygen Delivery Method Room Air Room Air - Lab Data Lab results reviewed: Yes: I reviewed the patient's lab results. Lab Results 08/04/21 09:45: Strep Scn Rapid Clinic Positive A [facility] [place] HPI - General Stated complaint: sore throat Time Seen by Provider: 08/04/21 10:24 Mode of Arrival: Ambulatory Source of Information: Patient Limitations: No Limitations Description of Symptoms (Recalled from Triage Doc. by RN): sore throat HEENT Symptoms (Recalled from RN notes): Yes (sore throat) Resp Symptoms (Recalled from RN notes): No Skin Symptoms (Recalled from RN notes): No MS Symptoms (Recalled from RN notes): No Functional Status (Recalled from RN notes): na - History of Present Illness Provider Complaint: Patient states that she is 19wks OB State that she has been having sore throat for the last couple of days that has continued to get worse States that it hurts when she swallows and today it was feeling worse so she came in - Related Data Home Medications Medication Instructions Recorded Confirmed prenat.vits,moustapha,[id number] 1 tab PO DAILY 01/01/21 08/01/21 Previous Rx's Medication Instructions Recorded ferrous sulfate 325 mg (65 mg 325 mg PO DAILY #30 tab 08/01/21 iron) tablet Amoxicillin [Amoxicillin 500mg 500 mg PO BID 10 Days #20 cap 08/04/21 Cap] Allergies Allergy/AdvReac Type Severity Reaction Status Date / Time ciprofloxacin [From Cipro] Allergy Verified 08/01/21 11:30 nitrofurantoin Allergy Verified 08/01/21 11:30 [From Macrobid] - Worker's Comp Is this a Worker's Comp case?: No [facility] History - Hepatitis A Screen Drug use history?: No High risk sexual behaviors?: No History of sexually transmit
[2021-08-04 10:29] VITALS: BP 115/76; PULSE 87; RESP 16; TEMP 36.9; O2SAT 98
== END 2021-08-04 10:33 | disposition home or self-care (01) ==
PROVIDERS: Emergency Provider Nurse Practitioner; PCP Physician Assistant
DX: J02.0 Streptococcal pharyngitis (principal); B95.0 Streptococcus, group A, as the cause of diseases classified elsewhere; O99.820 Streptococcus B carrier state complicating pregnancy; O99.344 Other mental disorders complicating childbirth; F41.9 Anxiety disorder, unspecified; Z79.899 Other long term (current) drug therapy; Z88.1 Allergy status to other antibiotic agents; Z88.3 Allergy status to other anti-infective agents; Z88.8 Allergy status to other drugs, medicaments and biological substances; Z3A.19 19 weeks gestation of pregnancy
CPT/HCPCS: 87880; 99213; G0463

== ENCOUNTER 2021-08-10 16:48 | Emergency (ER) | payer OTHER, SELFPAY ==
[2021-08-10 17:00] VITALS: BP 129/77; PULSE 90; RESP 18; TEMP 36.7; O2SAT 95; BMI 31.5
--- NOTE | 2021-08-10 17:05 | HMH.EDUTC ---
[facility] [place] Disposition Clinical Impression: Bilateral otitis media Qualifiers: Otitis media type: suppurative Chronicity: acute Recurrence: non-recurrent Spontaneous tympanic membrane rupture: without spontaneous rupture Qualified Code(s): H66.003 - Acute suppurative otitis media without spontaneous rupture of ear drum, bilateral Disposition: Home, Self-Care Condition on Discharge: Good Instructions: DI for Otitis Media (Middle Ear Infection)-Child Additional Instructions: Stop Amoxicillin. Change to Omnicef BID. Prescriptions: Cefdinir [Omnicef 300mg Capsule] 300 mg PO BID #20 cap Transmission Status: Pending to [id number] Pseudoephedrine HCl [Sudafed 12 Hour 120mg Tab] 1 tab PO BID 10 Days #20 tab Transmission Status: Pending to [id number] Referrals: India Kessler PA [Primary Care Provider] - Time of Disposition: 17:12 Medical Decision Making - Amadeo Inquiry Pt receiving controlled substance: No [facility] [place] HPI - General Stated complaint: R ear ache Time Seen by Provider: 08/10/21 17:09 - History of Present Illness Provider Complaint: Right ear pain X 3 days. No fever. Patient is on Amoxicillin for strep throat, diagnosed last week. 20 weeks . Onset (ago): day(s) (3) Relieving factors: none Exacerbating factors: none Associated symptoms: denies other symptoms Treatments prior to arrival: other (Amoxicillin) - Related Data Home Medications Medication Instructions Recorded Confirmed prenat.vits,moustapha,[id number] 1 tab PO DAILY 01/01/21 08/01/21 Previous Rx's Medication Instructions Recorded ferrous sulfate 325 mg (65 mg 325 mg PO DAILY #30 tab 08/01/21 iron) tablet Amoxicillin [Amoxicillin 500mg 500 mg PO BID 10 Days #20 cap 08/04/21 Cap] terconazole 0.8 % vaginal cream 5 g VAGINAL HS 3 Days #20 g 08/09/21 Cefdinir [Omnicef 300mg Capsule] 300 mg PO BID #20 cap 08/10/21 Pseudoephedrine HCl [Sudafed 12 1 tab PO BID 10 Days #20 tab 08/10/21 Hour 120mg Tab] Allergies Allergy/AdvReac Type Severity Reaction Status Date / Time ciprofloxacin [From Cipro] Allergy Verified 08/01/21 11:30 nitrofurantoin Allergy Verified 08/01/21 11:30 [From Macrobid] [facility] History - Hepatitis A Screen Attestation statement:: This patient has been screened for Hepatitis A risk factors. I have reviewed the patient's past medical history: Yes Medical History: Reports:: Anxiety Denies:: Cancer, Diabetes Mellitus Type 1, Diabetes Mellitus Type 2, Hypertension, Internal Pacemaker, MRSA, Seizures Other Medical History: Denies: Blood Transfusion Reaction Other Surgeries: Yes: Dilation and Curettage, Other. No: Pacemaker Amputation: No Fractures: No Comment: wisdom teeth - Social History Smoking Status: Never smoker Alcohol Intake: never Alcohol Intake Frequency:: other Substance Use Type: denies use Occupational Status: employed Housing: house Household Members: significant other - Psychiatric History Pschychiatric History:: Reports:: Anxiety Family Hx:: No significant family history ROS Obtained: Yes All systems reviewed & no additional complaints - ENT Ears, Nose, Mouth, and Throat: Reports otalgia Physical Exam - General General appearance: alert, in no apparent distress - Head Head exam: normocephalic - Eye Eye exam: Present: PERRL - Expanded ENT Exam TM/Canal exam: Bilateral TM: erythema, bulging Nose exam: Absent: sinus tenderness Throat exam: Present: tonsillar erythema - Neck Neck exam: Present: lymphadenopathy - Chest Chest inspection: Present: normal inspection, symmetric chest wall rise - Respiratory Respiratory exam: Present: normal lung sounds bilaterally. Absent: respiratory distress - Cardiovascular Cardiovascular exam: Present: regular rate, normal rhythm - Neurological Exam Neurological exam: Present: alert, oriented X3 - Psychiatric Psychiatric exam: Present: normal affect, normal mood - Skin
[2021-08-10 17:17] VITALS: BP 129/77; PULSE 90; RESP 18; TEMP 36.7; O2SAT 95
== END 2021-08-10 17:20 | disposition home or self-care (01) ==
PROVIDERS: Emergency Provider Physician Assistant; PCP Physician Assistant
DX: H66.003 Acute suppurative otitis media without spontaneous rupture of ear drum, bilateral (principal); F41.9 Anxiety disorder, unspecified; Z88.8 Allergy status to other drugs, medicaments and biological substances
CPT/HCPCS: 99213; G0463

== ENCOUNTER → 2021-08-14 13:52 | Outpatient (CLI) | payer OTHER, SELFPAY ==
--- NOTE | 2021-08-14 13:52 | US_ITS ---
FINAL REPORT CLINICAL HISTORY: US OB Complete Anatomy Scan 20 wk + FINDINGS: There is a single live intrauterine gestation. Presentation is breech. The cervix is closed and measures 3.7 cm. Placenta is posterior. Cardiac activity is confirmed at 165 bpm. The fetus is active. Three-vessel cord with satisfactory umbilical cord insertion. Four-chamber heart is noted. brain and ventricles are unremarkable. Chest and diaphragm are unremarkable. ABDOMEN: Both kidneys are unremarkable. Stomach is unremarkable. SPINE: No anomalies identified. Both arms and legs noted. AMNIOTIC FLUID: Appropriate amount. MEASUREMENTS: ULTRASOUND AGE: 21 weeks 1 days. GESTATION AGE: 20 weeks 5 days. ESTIMATED WEIGHT: 405 g GROWTH PERCENTILE: 71% BPD: 5.1 cm consistent with 21 weeks 3 days. OFD: 6.2 cm consistent with 20 weeks 5 days. HC: 17.7 cm consistent with 20 weeks 2 days. AC: 16.7 cm consistent with 21 weeks 6 days. FL: 3.4 cm consistent with 20 weeks 6 days. CEREBELLUM: 2.2 cm consistent with 21 weeks 4 days. HUMERUS: 3.3 cm consistent with 21 weeks 0 days. HC/AC: 1.06 CI: 82% FL/BPD: 68% FL/AC: 20% IMPRESSION: Single living IUP with an ultrasound age of 21 weeks 1 days. Reviewed, Interpreted and Dictated by Robby Herring MD Transcribed by Nelson Campos Authenticated by Robby Herring MD on 08/16/2021 02:17:03 PM [facility]
== END ==
PROVIDERS: PCP Physician Assistant; Visit Provider Nurse Practitioner Obstetrics & Gynecology
DX: Z36.0 Encounter for antenatal screening for chromosomal anomalies (principal)
CPT/HCPCS: 76811

== ENCOUNTER 2021-08-30 18:49 | Outpatient (CLI) | payer OTHER, SELFPAY ==
[2021-08-30 19:23] VITALS: BMI 32.8
[2021-08-30 19:36] VITALS: BP 129/90; PULSE 116; RESP 18; TEMP 36.4; O2SAT 98; BMI 29.8
[2021-08-30 19:43] LABS: Microscopic, Urine URINE MICROSCOPIC (MICROSCOPIC)
[2021-08-30 19:48] LABS: Appearance,Urine CLEAR (Clear); Bilirubin,Urine Negative (Negative); Blood, Urine Negative (Negative); Color,Urine YELLOW (Yellow); Glucose,Urine (UA) Negative (Negative); Ketones,Urine Negative (Negative); Leukocyte Esterase,Urine Negative (Negative); Nitrate,Urine Negative (Negative); PH,Urine 6.5 (5.0-8.5); Protein,Urine Negative (Negative); Urobilinogen,Urine 0.2 EU/dl (0.2)
[2021-08-30 20:09] LABS: Amphetamine/Metha Screen,Urine Negative ng/ml (<1000)
[2021-08-30 20:10] LABS: Barbiturates Screen,Urine Negative ng/ml (<200)
[2021-08-30 20:11] LABS: Benzodiazepines Screen,Urine Negative ng/ml (<200)
[2021-08-30 20:12] LABS: Cannabinoid Screen,Urine Negative ng/ml (<50)
[2021-08-30 20:13] LABS: Cocaine Screen,Urine Negative ng/ml (<300); Methadone Screen,Urine Negative ng/ml (<300)
[2021-08-30 20:14] LABS: Opiate Screen,Urine Negative ng/ml (<300)
[2021-08-30 20:15] LABS: Phencyclidine Screen,Urine Negative ng/ml (<25)
[2021-08-30 20:54] LABS: Bacteria,Urine 1+ /lpf
== END 2021-08-30 19:56 | disposition home or self-care (01) ==
LOC: OBOUT 18:53 → OB 18:54
PROVIDERS: PCP Nurse Practitioner Obstetrics & Gynecology; Visit Provider Obstetrics & Gynecology
DX: O36.8120 Decreased fetal movements, second trimester, not applicable or unspecified (principal); Z3A.23 23 weeks gestation of pregnancy
CPT/HCPCS: 80305; 81001; G0463

== ENCOUNTER → 2021-09-22 09:38 | Outpatient (CLI) | payer OTHER, SELFPAY ==
[2021-09-22 10:07] LABS: Glucose,Fasting 93 mg/dl (74-100)
[2021-09-22 12:41] LABS: Glucose 1 Hour 126 mg/dL (74-100)
== END ==
PROVIDERS: Visit Provider Nurse Practitioner Obstetrics & Gynecology
DX: Z34.90 Encounter for supervision of normal pregnancy, unspecified, unspecified trimester (principal)
CPT/HCPCS: 36415; 82951

== ENCOUNTER → 2021-11-03 08:49 | Outpatient (CLI) | payer OTHER, SELFPAY ==
[2021-11-03 09:56] LABS: Glucose,Fasting 91 mg/dl (74-100)
[2021-11-03 12:04] LABS: Glucose 1 Hour 177 mg/dL (74-100)
[2021-11-03 14:30] LABS: Glucose 2 Hour 163 mg/dL (74-100); Glucose 3 Hour 115 mg/dL (74-100)
== END ==
PROVIDERS: PCP Physician Assistant; Visit Provider Nurse Practitioner Obstetrics & Gynecology
DX: O40.3XX0 Polyhydramnios, third trimester, not applicable or unspecified (principal)
CPT/HCPCS: 36415; 82951

== ENCOUNTER 2021-11-05 20:00 | Observation (INO) | payer OTHER, SELFPAY ==
[2021-11-05 16:55] VITALS: BMI 34.7
[2021-11-05 17:07] VITALS: BP 125/87; PULSE 96; RESP 18; TEMP 36.8; O2SAT 98
[2021-11-05 17:07] LABS: Microscopic, Urine URINE MICROSCOPIC (MICROSCOPIC)
[2021-11-05 17:16] LABS: Appearance,Urine CLEAR (Clear); Bilirubin,Urine Negative (Negative); Blood, Urine TRACE-I (Negative); Color,Urine YELLOW (Yellow); Glucose,Urine (UA) Negative (Negative); Ketones,Urine Negative (Negative); Leukocyte Esterase,Urine Negative (Negative); Nitrate,Urine Negative (Negative); Protein,Urine Negative (Negative); Specific Gravity, Urine 1.025 (1.005-1.030); Urobilinogen,Urine 0.2 EU/dl (0.2)
[2021-11-05 17:28] LABS: Amphetamine/Metha Screen,Urine Negative ng/ml (<1000); Barbiturates Screen,Urine Negative ng/ml (<200)
[2021-11-05 17:29] LABS: Benzodiazepines Screen,Urine Negative ng/ml (<200)
[2021-11-05 17:30] LABS: Cannabinoid Screen,Urine Negative ng/ml (<50); Cocaine Screen,Urine Negative ng/ml (<300)
[2021-11-05 17:31] LABS: Methadone Screen,Urine Negative ng/ml (<300); Opiate Screen,Urine Negative ng/ml (<300)
[2021-11-05 17:32] LABS: Phencyclidine Screen,Urine Negative ng/ml (<25)
[2021-11-05 17:34] LABS: Fetal Membrane Rupture (Rapid) Negative (Negative)
[2021-11-05 18:15] VITALS: BP 125/87; PULSE 96; RESP 18; TEMP 36.8; O2SAT 98; BMI 34.7
[2021-11-05 18:49] LABS: Calcium Oxalate Crystals,Urine 1+ /lpf; Squamous Epithelial Cell,Urine Occasional #/hpf (0-5); WBC,Urine Occasional #/hpf (0-3)
[2021-11-05 20:04] LABS: Coronavirus 19, PCR Not Detected (NotDetected); Influenza A, PCR Not Detected (NotDetected); Influenza B, PCR Not Detected (NotDetected)
[2021-11-05 20:20] LABS: Basophils % 0.2 % (0.1-2.0); Eosinophils # 0.1 K/mm3 (0.0-0.4); Eosinophils % 0.4 % (0.1-12.0); Hematocrit 33.6 % (37.0-47.0); Hemoglobin 11.8 g/dL (12.2-16.2); Lymphocytes # 1.8 K/mm3 (0.7-4.5); Mean Corpuscular HGB Conc 35.1 g/dL (31.8-35.4); Mean Corpuscular Hemoglobin 32.1 pg (27.0-31.2); Mean Corpuscular Volume 91.4 fl (81-99); Monocytes # 0.5 K/mm3 (0.1-1.0); Monocytes % 3.5 % (1.7-9.3); Neutrophils # 11.4 K/mm3 (1.8-7.8); Platelet Count 318 K/mm3 (142-424); Red Blood Count 3.67 M/mm3 (4.20-5.40); Red Cell Distribution Width 13.6 % (11.5-17.5); White Blood Count 13.7 K/mm3 (4.8-10.8)
[2021-11-05 20:22] LABS: Magnesium 1.5 mg/dl (1.6-2.3)
[2021-11-06 07:40] VITALS: BP 126/87; PULSE 89; RESP 18; TEMP 36.4; O2SAT 99
--- NOTE | 2021-11-06 07:42 | HMH.PHAINT ---
MEDICATION RECONCILIATION COMPLETED ON PATIENT USING EXTERNAL FILL HISTORY FROM PHARMACY. -ALE EDMONDS, LENCHOD
--- NOTE | 2021-11-06 10:29 | HMH.OBAPHP ---
OB - H&P: HPI Antepartum - History of Present Illness Chief complaint: labor, polyhydramnios, gestational diabetes History of present illness: She is a 26-year-old 1 now para 0 at 32 weeks gestational age. She came into labor and delivery having some contractions. She is known to have polyhydramnios. She was seen in consultation at [facility]. A recent 3-hour sugar was normal but close to abnormal. She had a 1 hour sugar that was normal early on in . We suspect that she has gestational diabetes causing her polyhydramnios. There was some acceleration of growth in the baby. On arrival she was having regular contractions but her cervix has not changed. She is admitted for steroids and toco lysis. We will also start her on 4 times daily sugar checks as well as a diabetic diet. - History of Present Criteria for establishing EDC:: LMP confirmed by 1st trimester US care: good care Ultrasounds: normal 1st trimester US, normal mid trimester US Obstetrical complications: gestational diabetes, labor - Labs Rubella: immune RPR/VDRL: nonreactive GBS status: negative [facility] History I have reviewed the patient's past medical history: Yes Medical History: Reports:: Anxiety Denies:: Cancer, Diabetes Mellitus Type 1, Diabetes Mellitus Type 2, Hypertension, Internal Pacemaker, MRSA, Seizures *Have you ever received a pneumonia vaccine?: No *Have you received a flu vaccine this season?: Yes Other Medical History: Denies: Blood Transfusion Reaction Other Surgeries: Yes: Dilation and Curettage, Other. No: , Pacemaker Amputation: No Fractures: No - *Social History Smoking Status: Never smoker Alcohol Intake: never Alcohol Intake Frequency:: other Substance Use Type: denies use *Occupational Status:: employed Housing: house Household Members: significant other *Travel in the last 8 weeks: None - Psychiatric History Pschychiatric History:: Reports:: Anxiety Family Hx:: No significant family history Para: 0 Review of Systems - Review of Systems Review of systems:: pertinent systems reviewed and negative unless documented below Meds Home Medications Medication Instructions Recorded Confirmed Type prenat.vits,moustapha,[id number] 1 tab PO DAILY 01/01/21 11/06/21 History Escitalopram Oxalate 10 mg PO DAILY 11/06/21 11/06/21 History Famotidine [Ac[employer] Usher] 20 mg PO BID 11/06/21 11/06/21 History Ferrous Sulfate 325 mg PO DAILY 11/06/21 11/06/21 History Allergies Allergy/AdvReac Type Severity Reaction Status Date / Time ciprofloxacin [From Cipro] Allergy Verified 10/31/21 10:40 nitrofurantoin Allergy Verified 10/31/21 10:40 [From Macrobid] OB - H&P: Exam - Physical Exam Vital signs: Temp Pulse Resp BP Pulse Ox 97.5 F L 89 18 126/87 99 11/06/21 07:40 11/06/21 07:40 11/06/21 07:40 11/06/21 07:40 11/06/21 07:40 - Constitutional no acute distress - Routine HEENT Exam Head: Present: normocephalic Eye: Present: EOMI, PERRL ENT: Present: mucous membranes moist - Routine Neck Exam Present: supple, full ROM - Routine Respiratory Exam Absent: accessory muscle use (good air entry bilaterally), respiratory distress, wheezes, crackles - Routine Cardiovascular Exam Present: RRR. Absent: murmur - Routine Abdominal Exam Present: soft, normoactive bowel sounds. Absent: tenderness, distended, guarding - Routine Rectal Exam Patient deferred: visual exam, digital exam - Routine Exam Patient deferred: external exam, groin exam, perineal exam - Routine Extremities Exam Present: full ROM. Absent: cyanosis, edema - Routine Skin Exam Present: intact. Absent: cyanosis - Routine Neurological Exam Present: alert, oriented X3 - Routine Psychiatric Exam Present: normal affect OB - Results - Labs Labs: Short CBC 11/05/21 Range/Units 19:56 WBC 13.7 H (4.8-10.8) K/mm3 Hgb 11.8 L (1
--- NOTE | 2021-11-06 10:33 | P.PN_ITS ---
Internal Medicine - PN: Subj *Date: 11/06/21 *Time: 10:33 Interval history: She is doing well although she has a few contractions but they are just very mild. We will check her sugars and see how they are doing. She has had 1 dose of steroids and were waiting for the second dose. We will get a consult today from dietary regarding her gestational diabetes. Exam Vital signs and Labs for Last 24 Hours: Temp Pulse Resp BP Pulse Ox 97.5 F L 89 18 126/87 99 11/06/21 07:40 11/06/21 07:40 11/06/21 07:40 11/06/21 07:40 11/06/21 07:40 Laboratory Results - last 24 hr 11/05/21 16:55: Urine Color Yellow, Urine Appearance Clear, Urine pH 6.0, Ur Specific [place] 1.025, Urine Protein Negative, Urine Glucose (UA) Negative, Urine Ketones Negative, Urine Blood Trace-i, Urine Nitrate Negative, Urine Bilirubin Negative, Urine Urobilinogen 0.2, Ur Leukocyte Esterase Negative, Urine RBC 3-5, Urine WBC Occasional, Ur Squamous Epith Cells Occasional, Calcium Oxalate Crystal 1+, Urine Bacteria None 11/05/21 16:55: Urine Opiates Screen Negative, Urine Methadone Screen Negative, Ur Barbituates Screen Negative, Ur Phencyclidine Scrn Negative, Ur Amphetamines Screen Negative, U Benzodiazepines Scrn Negative, Urine Cocaine Screen Negative, U Marijuana (THC) Screen Negative 11/05/21 17:18: Membrane Rupture Negative 11/05/21 19:56: WBC 13.7 H, RBC 3.67 L, Hgb 11.8 L, Hct 33.6 L, MCV 91.4, MCH 32.1 H, MCHC 35.1, RDW 13.6, Plt Count 318, MPV 8.0, Neut % (Auto) 83.0 H, Lymph % (Auto) 13.0, [place] % (Auto) 3.5, Eos % (Auto) 0.4, Baso % (Auto) 0.2, Neut # (Auto) 11.4 H, Lymph # (Auto) 1.8, [place] # (Auto) 0.5, Eos # (Auto) 0.1, Baso # (Auto) 0.0 11/05/21 19:56: Magnesium 1.5 L 11/05/21 19:56: SARS-CoV-2 (PCR) Not detected, Influenza A Untype (PCR) Not d etected, Influenza Type B (PCR) Not detected I & O for Last 24 hours: Intake & Output 11/03/21 11/04/21 11/05/21 11/06/21 11:59 11:59 11:59 11:59 Weight 196 lb 4 oz - Constitutional no acute distress - *Routine HEENT Exam Head: Present: normocephalic Eye: Present: EOMI, PERRL ENT: Present: mucous membranes moist Assessment and Plan (1) labor in third trimester Status: Acute Category: Medical Code(s): O60.03 - labor without delivery, third trimester (2) Polyhydramnios affecting in third trimester Status: Chronic Category: Medical Code(s): O40.3XX0 - Polyhydramnios, third trimester, not applicable or unspecified - Assessment and plan all Dx Assessment and Plan for all problems:: Continue with bedrest, check sugars 4 times daily. Give the second dose of steroids. [place] lysis if she continues to have painful contractions.
[2021-11-06 13:11] VITALS: BMI 34.7
--- NOTE | 2021-11-06 13:18 | DIET.NUTRFU ---
RD consulted for gestational DM, handout was provided and reviewed. Reviewed food preferences and food to limit. Reviewed menu for dinner, she will once decided.
[2021-11-06 15:44] LABS: POC Glucose,Bedside 175 (70-110)
[2021-11-06 17:18] LABS: POC Glucose,Bedside 120 (70-110)
[2021-11-06 21:27] LABS: POC Glucose,Bedside 125 (70-110)
[2021-11-07 03:11] LABS: POC Glucose,Bedside 129 (70-110)
[2021-11-07 09:29] LABS: POC Glucose,Bedside 120 (70-110)
--- NOTE | 2021-11-07 11:20 | P.DS_ITS ---
General - General Admission date:: 11/05/21 Discharge date: 11/07/21 HPI HPI: She is a 26-year-old 1 para 0 at 32 weeks gestational age. She came in with contractions and thinking pressure. On admission it was noted that she was having regular contractions. She is known to have polyhydramnios and had passed her 3-hour sugar test but it was borderline. Hospital Course Hospital Course: She was started on fluids and nifedipine every 6 hours. This seemed to settle her contractions. She also received steroids. Her cervix was just 1 cm and 25% effaced. Nonstress test has been reactive. We also have been testing her sugars and they have been slightly elevated. She was consulted by dietary and did receive some information about gestational diabetes. We will send her home with a glucometer and monitor her sugars. She has seen [facility] for her polyhydramnios and has another appointment with them November 29. She is discharged home to [facility] and to follow-up with her sugars 4 times daily. She was given an appropriate diet for gestational diabetes. She will follow-up with me in a week's time. Her condition on discharge is stable and improved. Objective Vital signs: Temp Pulse Resp BP Pulse Ox 97.5 F L 89 18 126/87 99 11/06/21 07:40 11/06/21 07:40 11/06/21 07:40 11/06/21 07:40 11/06/21 07:40 no acute distress - *Routine HEENT Exam Head: Present: normocephalic Eye: Present: EOMI, PERRL ENT: Present: mucous membranes moist Results Labs on day of discharge: Labs from last 24 hours 11/07/21 11/07/21 11/06/21 09:21 03:02 21:14 POC Glucose 120 H 129 H 125 H 11/06/21 11/06/21 15:46 09:40 POC Glucose 120 H 175 H DS: Diagnosis - Discharge Diagnosis (1) labor in third trimester Status: Acute (2) Polyhydramnios affecting in third trimester Status: Chronic Discharge Plan - Patient Discharge Instructions ACTIVITY: Limited activity (The), No heavy lifting DIET: diabetic diet - Follow up Plan Disposition: Home, Self-Care Condition at discharge:: Stable (okay she does not have to take them know) Home Medications: Home Medications Medication Instructions Recorded Confirmed Type prenat.vits,moustapha,[id number] 1 tab PO DAILY 01/01/21 11/06/21 History Escitalopram Oxalate 10 mg PO DAILY 11/06/21 11/06/21 History Famotidine [Acid Sprinkler Repair Technician] 20 mg PO BID 11/06/21 11/06/21 History Ferrous Sulfate 325 mg PO DAILY 11/06/21 11/06/21 History NIFEdipine [NIFEdipine 10mg 10 mg PO Q6H #120 cap 11/07/21 Rx Capsule] Prescriptions/Medication Reconciliation: New NIFEdipine [NIFEdipine 10mg Capsule] 10 mg PO Q6H #120 cap Continued prenat.vits,moustapha,[id number]-bghns 1 tab PO DAILY Ferrous Sulfate 325 mg PO DAILY Famotidine [Acid Sprinkler Repair Technician] 20 mg PO BID Escitalopram Oxalate 10 mg PO DAILY - Problem Reconciliation Problems Reviewed?: Yes
== END 2021-11-07 12:35 | disposition home or self-care (01) ==
LOC: OBOUT 20:02 → OB 20:02
PROVIDERS: Admitting Provider Nurse Practitioner Obstetrics & Gynecology; PCP Physician Assistant; Visit Provider Nurse Practitioner Obstetrics & Gynecology
DX: O24.410 Gestational diabetes mellitus in pregnancy, diet controlled (principal); O60.03 Preterm labor without delivery, third trimester; Z3A.32 32 weeks gestation of pregnancy; O40.3XX0 Polyhydramnios, third trimester, not applicable or unspecified; Z20.822 Contact with and (suspected) exposure to COVID-19
CPT/HCPCS: 36415; 59025; 80305; 81001; 82962; 83735; 84112; 85025; 96360; 96372; C9803; G0378; U0003; U0005

== ENCOUNTER 2021-11-13 11:35 | Outpatient (CLI) | payer OTHER, SELFPAY ==
[2021-11-13 11:49] VITALS: BMI 31.8
[2021-11-13 12:05] LABS: POC Glucose,Bedside 86 (70-110)
[2021-11-13 12:07] VITALS: BP 108/87; PULSE 95; RESP 19; TEMP 36.8; O2SAT 98; BMI 31.8
[2021-11-13 12:43] LABS: Microscopic, Urine URINE MICROSCOPIC (MICROSCOPIC)
[2021-11-13 12:45] LABS: Appearance,Urine CLEAR (Clear); Bilirubin,Urine Negative (Negative); Blood, Urine 1+ (Negative); Color,Urine YELLOW (Yellow); Glucose,Urine (UA) Negative (Negative); Ketones,Urine Negative (Negative); Leukocyte Esterase,Urine Negative (Negative); Nitrate,Urine Negative (Negative); PH,Urine 6.5 (5.0-8.5); Protein,Urine Negative (Negative); Urobilinogen,Urine 0.2 EU/dl (0.2)
[2021-11-13 12:56] LABS: Amphetamine/Metha Screen,Urine Negative ng/ml (<1000)
[2021-11-13 12:57] LABS: Barbiturates Screen,Urine Negative ng/ml (<200)
[2021-11-13 12:58] LABS: Benzodiazepines Screen,Urine Negative ng/ml (<200); Cannabinoid Screen,Urine Negative ng/ml (<50)
[2021-11-13 12:59] LABS: Cocaine Screen,Urine Negative ng/ml (<300); Methadone Screen,Urine Negative ng/ml (<300)
[2021-11-13 13:00] LABS: Opiate Screen,Urine Negative ng/ml (<300)
[2021-11-13 13:01] LABS: Bacteria,Urine 1+ /lpf; Phencyclidine Screen,Urine Negative ng/ml (<25); RBC,Urine Occasional #/hpf (0-3)
== END 2021-11-13 14:44 | disposition home or self-care (01) ==
LOC: OBOUT 11:37 → OB 11:37
PROVIDERS: PCP Physician Assistant; Visit Provider Nurse Practitioner Obstetrics & Gynecology
DX: O36.8130 Decreased fetal movements, third trimester, not applicable or unspecified (principal); Z3A.33 33 weeks gestation of pregnancy
CPT/HCPCS: 59025; 80305; 81001; 82962; 96365; G0463

== ENCOUNTER 2021-11-21 14:19 | Outpatient (CLI) | payer OTHER, SELFPAY ==
[2021-11-21 14:29] VITALS: BMI 34.4
[2021-11-21 14:35] VITALS: BMI 31.1
[2021-11-21 14:44] LABS: Microscopic, Urine URINE MICROSCOPIC (MICROSCOPIC)
[2021-11-21 15:09] VITALS: BP 130/79; PULSE 106; RESP 18; TEMP 36.6; O2SAT 99; BMI 31.1
[2021-11-21 15:10] LABS: Appearance,Urine CLEAR (Clear); Bilirubin,Urine Negative (Negative); Blood, Urine Negative (Negative); Color,Urine YELLOW (Yellow); Glucose,Urine (UA) Negative (Negative); Ketones,Urine Negative (Negative); Leukocyte Esterase,Urine Negative (Negative); Nitrate,Urine Negative (Negative); PH,Urine 6.5 (5.0-8.5); Protein,Urine Negative (Negative); Urobilinogen,Urine 0.2 EU/dl (0.2)
[2021-11-21 15:23] LABS: Amphetamine/Metha Screen,Urine Negative ng/ml (<1000); Benzodiazepines Screen,Urine Negative ng/ml (<200)
[2021-11-21 15:24] LABS: Barbiturates Screen,Urine Negative ng/ml (<200)
[2021-11-21 15:25] LABS: Cannabinoid Screen,Urine Negative ng/ml (<50); Cocaine Screen,Urine Negative ng/ml (<300)
[2021-11-21 15:26] LABS: Methadone Screen,Urine Negative ng/ml (<300)
[2021-11-21 15:27] LABS: Opiate Screen,Urine Negative ng/ml (<300); Phencyclidine Screen,Urine Negative ng/ml (<25)
[2021-11-21 16:21] LABS: RBC,Urine Occasional #/hpf (0-3)
== END 2021-11-21 16:45 | disposition home or self-care (01) ==
LOC: OBOUT 14:20 → OB 14:21
PROVIDERS: PCP Physician Assistant; Visit Provider Obstetrics & Gynecology
DX: O26.893 Other specified pregnancy related conditions, third trimester (principal); Z3A.34 34 weeks gestation of pregnancy
CPT/HCPCS: 59025; 80305; 81001; G0463

== ENCOUNTER → 2021-11-28 13:28 | Outpatient (CLI) | payer OTHER, SELFPAY ==
--- NOTE | 2021-11-28 13:28 | US_ITS ---
FINAL REPORT CLINICAL HISTORY: Polyhydramnios/LGA and Gest Diabetes FINDINGS: There is a single live intrauterine gestation. Presentation is cephalic. The cervix is closed and measures 2.2 cm. Cervical shortening is noted with funneling. Placenta is posterior fundal grade. Cardiac activity is confirmed at 150 bpm. Fetus is active. The amniotic fluid index is 19.46 cm which is normal. MEASUREMENTS: ULTRASOUND AGE: 37 weeks 0 days. GESTATION AGE: 35 weeks 6 days. ESTIMATED WEIGHT: 3116 g GROWTH PERCENTILE: 83% BPD: 9.02 cm corresponding to 36 weeks 4 days. OFD: 11.60 cm HC: 32.64 cm corresponding to 37 weeks 1 day. AC: 33.67 cm corresponding to 37 weeks 5 days. FL: 7.09 cm corresponding to 36 weeks 3 days. HC/AC: 0.97 CI: 78% FL/BPD: 79% FL/AC: 21% BREATHIN MOVEMENT: 2 TONE: 2 FLUID VOLUME: 2 BPP SCORE: 8 IMPRESSION: Single living IUP with an ultrasound age of 37 weeks 0 days. Cervical shortening is noted with funneling. BPP SCORE: 8. Reviewed, Interpreted and Dictated by Herson Dubose III, MD Transcribed by Shi Laura Authenticated and [facility]
== END ==
PROVIDERS: PCP Physician Assistant; Visit Provider Nurse Practitioner Obstetrics & Gynecology
DX: O24.419 Gestational diabetes mellitus in pregnancy, unspecified control (principal); O36.60X0 Maternal care for excessive fetal growth, unspecified trimester, not applicable or unspecified; O40.3XX0 Polyhydramnios, third trimester, not applicable or unspecified
CPT/HCPCS: 76816; 76819

== ENCOUNTER → 2021-11-30 16:25 | Outpatient (CLI) | payer OTHER, SELFPAY | PROVIDERS: Visit Provider Obstetrics & Gynecology | DX: Z34.90 Encounter for supervision of normal pregnancy, unspecified, unspecified trimester (principal) | CPT/HCPCS: 86403 ==

== ENCOUNTER 2021-12-13 16:15 | Outpatient (CLI) | payer OTHER, SELFPAY ==
[2021-12-13 16:49] VITALS: BP 143/92; PULSE 109; RESP 16; TEMP 36.8; O2SAT 96; BMI 31.4
[2021-12-13 17:16] LABS: Microscopic, Urine URINE MICROSCOPIC (MICROSCOPIC)
[2021-12-13 17:22] LABS: Appearance,Urine SL CLOUDY (Clear); Bilirubin,Urine Negative (Negative); Blood, Urine TRACE-I (Negative); Color,Urine YELLOW (Yellow); Glucose,Urine (UA) Negative (Negative); Ketones,Urine Negative (Negative); Leukocyte Esterase,Urine Negative (Negative); Nitrate,Urine Negative (Negative); PH,Urine 6.5 (5.0-8.5); Protein,Urine TRACE (Negative); Urobilinogen,Urine 0.2 EU/dl (0.2)
[2021-12-13 17:32] LABS: Amphetamine/Metha Screen,Urine Negative ng/ml (<1000); Barbiturates Screen,Urine Negative ng/ml (<200)
[2021-12-13 17:33] LABS: Benzodiazepines Screen,Urine Negative ng/ml (<200)
[2021-12-13 17:34] LABS: Cannabinoid Screen,Urine Negative ng/ml (<50); Cocaine Screen,Urine Negative ng/ml (<300)
[2021-12-13 17:35] LABS: Methadone Screen,Urine Negative ng/ml (<300); Opiate Screen,Urine Negative ng/ml (<300)
[2021-12-13 17:36] LABS: Phencyclidine Screen,Urine Negative ng/ml (<25)
[2021-12-13 17:44] LABS: Bacteria,Urine Trace /lpf; RBC,Urine Occasional #/hpf (0-3)
[2021-12-13 18:22] LABS: Basophils # 0.1 K/mm3 (0-0.2); Basophils % 0.7 % (0.1-2.0); Eosinophils # 0.1 K/mm3 (0.0-0.4); Eosinophils % 0.6 % (0.1-12.0); Hematocrit 35.7 % (37.0-47.0); Hemoglobin 12.5 g/dL (12.2-16.2); Lymphocytes # 2.5 K/mm3 (0.7-4.5); Lymphocytes % 22.9 % (10-50); Mean Corpuscular HGB Conc 34.9 g/dL (31.8-35.4); Mean Corpuscular Hemoglobin 32.2 pg (27.0-31.2); Mean Corpuscular Volume 92.3 fl (81-99); Mean Platelet Volume 8.5 fl (7.4-10.4); Monocytes # 0.6 K/mm3 (0.1-1.0); Monocytes % 5.3 % (1.7-9.3); Neutrophils # 7.7 K/mm3 (1.8-7.8); Neutrophils % 70.6 % (37.0-80.0); Platelet Count 278 K/mm3 (142-424); Red Blood Count 3.87 M/mm3 (4.20-5.40); Red Cell Distribution Width 13.5 % (11.5-17.5); White Blood Count 10.9 K/mm3 (4.8-10.8)
[2021-12-13 18:33] LABS: Alanine Aminotransferase 20 U/L (12-78); Aspartate Amino Transferase 36 U/L (14-36); Blood Urea Nitrogen 9 mg/dl (7-17); Calcium 9.3 mg/dl (8.4-10.2); Carbon Dioxide 21 mmol/L (22.0-30.0); Chloride 106 mmol/L (98-107); Creatinine Clearance Estimated 151 mL/min (50-200); Estimated Glomerular Filt Rate 88 ml/min (>60); GFR (African American) 107 ML/MIN (>60); Glucose 90 mg/dl (74-100); Sodium 133 mmol/L (136-145); Uric Acid 4.9 mg/dl (2.5-6.2)
== END 2021-12-13 19:35 | disposition home or self-care (01) ==
LOC: OBOUT 16:18 → OB 16:19
PROVIDERS: PCP Nurse Practitioner Obstetrics & Gynecology; Visit Provider Nurse Practitioner Obstetrics & Gynecology
DX: O60.03 Preterm labor without delivery, third trimester (principal); Z3A.30 30 weeks gestation of pregnancy
CPT/HCPCS: 59025; 80048; 80305; 81001; 84450; 84460; 84550; 85025; 85610; 96365; G0463

== ENCOUNTER → 2021-12-17 13:26 | Outpatient (CLI) | payer OTHER, SELFPAY ==
--- NOTE | 2021-12-17 13:26 | US_ITS ---
FINAL REPORT CLINICAL HISTORY: Growth FINDINGS: TRANSABDOMINAL ULTRASOUND There is a single live intrauterine gestation. Presentation is vertex. Placenta is posterior. Cardiac activity is confirmed at 140 bpm. Fetus is active and practice breathing is is noted. Three-vessel cord and four-chamber heart is seen. LEONARDO: 14.05 cm MEASUREMENTS: ULTRASOUND AGE: 37 weeks 4 days. GESTATION AGE: 38 weeks 4 days. ESTIMATED WEIGHT: 3345 g GROWTH PERCENTILE: 49% BPD: 9.1 cm corresponding with 37 weeks 1 days. OFD: 11.8 cm HC: 33.2 cm corresponding with 37 weeks 6 days. AC: 34.9 cm corresponding with 38 weeks 6 days. FL: 7.1 cm corresponding with 36 weeks 3 days. HC/AC: 0.95 CI: 77% FL/BPD: 78% FL/AC: 20% BREATHIN/2 MOVEMENT: 2/2 TONE: 2/2 FLUID VOLUME: 2/2 BPP SCORE: 8/8 IMPRESSION: Single living IUP with an ultrasound age of 37 weeks 4 days. BPP SCORE: 8/8, LEONARDO 14.05 cm Reviewed, Interpreted and Dictated by Paula Ang MD Transcribed by Maame Armando Authenticated and [facility]
== END ==
PROVIDERS: PCP Physician Assistant; Visit Provider Nurse Practitioner Obstetrics & Gynecology
DX: O36.60X0 Maternal care for excessive fetal growth, unspecified trimester, not applicable or unspecified (principal)
CPT/HCPCS: 76811; 76819; 76820

== ENCOUNTER 2021-12-20 08:17 | Outpatient (CLI) | payer OTHER, SELFPAY ==
[2021-12-20 08:28] VITALS: BMI 34.2
[2021-12-20 09:05] LABS: Microscopic, Urine URINE MICROSCOPIC (MICROSCOPIC)
[2021-12-20 09:07] LABS: Appearance,Urine CLEAR (Clear); Bilirubin,Urine Negative (Negative); Blood, Urine Negative (Negative); Color,Urine YELLOW (Yellow); Glucose,Urine (UA) Negative (Negative); Ketones,Urine Negative (Negative); Leukocyte Esterase,Urine Negative (Negative); Nitrate,Urine Negative (Negative); Protein,Urine Negative (Negative); Urobilinogen,Urine 0.2 EU/dl (0.2)
[2021-12-20 09:15] LABS: Fetal Membrane Rupture (Rapid) Negative (Negative)
[2021-12-20 09:20] LABS: Bacteria,Urine Trace /lpf; Barbiturates Screen,Urine Negative ng/ml (<200); Mucus,Urine Trace /lpf; WBC,Urine Occasional #/hpf (0-3)
[2021-12-20 09:21] LABS: Amphetamine/Metha Screen,Urine Negative ng/ml (<1000); Benzodiazepines Screen,Urine Negative ng/ml (<200)
[2021-12-20 09:22] LABS: Cannabinoid Screen,Urine Negative ng/ml (<50); Cocaine Screen,Urine Negative ng/ml (<300)
[2021-12-20 09:23] LABS: Methadone Screen,Urine Negative ng/ml (<300)
[2021-12-20 09:24] LABS: Opiate Screen,Urine Negative ng/ml (<300); Phencyclidine Screen,Urine Negative ng/ml (<25)
[2021-12-20 11:27] VITALS: BP 131/88; PULSE 109; RESP 18; TEMP 36.8; O2SAT 98; BMI 34.2
== END 2021-12-20 09:40 | disposition home or self-care (01) ==
LOC: OBOUT 08:18 → OB 08:19
PROVIDERS: PCP Physician Assistant; Visit Provider Nurse Practitioner Obstetrics & Gynecology
DX: O26.893 Other specified pregnancy related conditions, third trimester (principal); Z3A.39 39 weeks gestation of pregnancy; O42.90 Premature rupture of membranes, unspecified as to length of time between rupture and onset of labor, unspecified weeks of gestation
CPT/HCPCS: 59025; 80305; 81001; 84112; G0463

== ENCOUNTER 2021-12-23 15:53 | Inpatient (IN) | payer OTHER, SELFPAY ==
[2021-12-23 16:03] VITALS: BMI 31.4
[2021-12-23 16:38] LABS: Microscopic, Urine URINE MICROSCOPIC (MICROSCOPIC)
[2021-12-23 16:40] LABS: Coronavirus 19, PCR Not Detected (NotDetected); Influenza A, PCR Not Detected (NotDetected); Influenza B, PCR Not Detected (NotDetected)
[2021-12-23 16:44] LABS: Appearance,Urine CLEAR (Clear); Bilirubin,Urine Negative (Negative); Blood, Urine 1+ (Negative); Color,Urine YELLOW (Yellow); Glucose,Urine (UA) Negative (Negative); Ketones,Urine Negative (Negative); Leukocyte Esterase,Urine Negative (Negative); Nitrate,Urine Negative (Negative); Protein,Urine TRACE (Negative); Specific Gravity, Urine 1.025 (1.005-1.030); Urobilinogen,Urine 0.2 EU/dl (0.2)
[2021-12-23 16:50] LABS: Basophils # 0.1 K/mm3 (0-0.2); Basophils % 0.7 % (0.1-2.0); Eosinophils # 0.1 K/mm3 (0.0-0.4); Eosinophils % 0.8 % (0.1-12.0); Hematocrit 37.5 % (37.0-47.0); Hemoglobin 12.2 g/dL (12.2-16.2); Lymphocytes % 20.9 % (10-50); Mean Corpuscular HGB Conc 32.6 g/dL (31.8-35.4); Mean Corpuscular Hemoglobin 32.2 pg (27.0-31.2); Mean Corpuscular Volume 98.7 fl (81-99); Mean Platelet Volume 8.7 fl (7.4-10.4); Monocytes # 0.5 K/mm3 (0.1-1.0); Monocytes % 5.2 % (1.7-9.3); Neutrophils % 72.4 % (37.0-80.0); Platelet Count 254 K/mm3 (142-424); Red Cell Distribution Width 13.8 % (11.5-17.5); White Blood Count 9.6 K/mm3 (4.8-10.8)
[2021-12-23 16:51] VITALS: BP 131/90; PULSE 86; RESP 18; TEMP 36.8; O2SAT 98; BMI 31.4
[2021-12-23 16:52] LABS: Chloride 108 mmol/L (98-107); Potassium 3.7 mmoL/L (3.5-5.1); Sodium 133 mmol/L (136-145)
[2021-12-23 16:54] LABS: Benzodiazepines Screen,Urine Negative ng/ml (<200)
[2021-12-23 16:55] LABS: Anion Gap 8.7 mEq/L (5-15); Blood Urea Nitrogen 13 mg/dl (7-17); Calcium 9.3 mg/dl (8.4-10.2); Carbon Dioxide 20 mmol/L (22.0-30.0); Creatinine Clearance Estimated 110 mL/min (50-200); Estimated Glomerular Filt Rate 61 ml/min (>60); GFR (African American) 74 ML/MIN (>60); Glucose 115 mg/dl (74-100)
[2021-12-23 16:55] LABS: Amphetamine/Metha Screen,Urine Negative ng/ml (<1000); Barbiturates Screen,Urine Negative ng/ml (<200)
[2021-12-23 16:56] LABS: Cannabinoid Screen,Urine Negative ng/ml (<50)
[2021-12-23 16:57] LABS: Cocaine Screen,Urine Negative ng/ml (<300); Methadone Screen,Urine Negative ng/ml (<300)
[2021-12-23 16:58] LABS: Opiate Screen,Urine Negative ng/ml (<300)
[2021-12-23 16:59] LABS: Phencyclidine Screen,Urine Negative ng/ml (<25)
[2021-12-23 17:07] LABS: Squamous Epithelial Cell,Urine Occasional #/hpf (0-5)
[2021-12-24] VITALS (7 sets, daily range): BP systolic 131–162; BP diastolic 87–110; PULSE 73–98; RESP 18–22; TEMP 36.6–37.1; O2SAT 97–100
[2021-12-24 04:39] LABS: Basophils # 0.1 K/mm3 (0-0.2); Basophils % 0.9 % (0.1-2.0); Eosinophils # 0.2 K/mm3 (0.0-0.4); Eosinophils % 1.7 % (0.1-12.0); Hematocrit 37.9 % (37.0-47.0); Hemoglobin 12.4 g/dL (12.2-16.2); Lymphocytes # 2.4 K/mm3 (0.7-4.5); Lymphocytes % 26.6 % (10-50); Mean Corpuscular HGB Conc 32.8 g/dL (31.8-35.4); Mean Corpuscular Hemoglobin 31.9 pg (27.0-31.2); Mean Corpuscular Volume 97.3 fl (81-99); Mean Platelet Volume 8.6 fl (7.4-10.4); Monocytes # 0.6 K/mm3 (0.1-1.0); Monocytes % 7.1 % (1.7-9.3); Neutrophils # 5.7 K/mm3 (1.8-7.8); Neutrophils % 63.7 % (37.0-80.0); Platelet Count 255 K/mm3 (142-424); Red Blood Count 3.89 M/mm3 (4.20-5.40); Red Cell Distribution Width 13.9 % (11.5-17.5)
[2021-12-24 04:53] LABS: Activated Partial Thrombo Time 24.1 seconds (22.8-30.6); Fibrinogen 356 mg/dL (229.9-363.5); INR 0.88 (0.9-1.1)
[2021-12-24 04:54] LABS: Alanine Aminotransferase 17 U/L (12-78); Anion Gap 8.6 mEq/L (5-15); Aspartate Amino Transferase 41 U/L (14-36); Blood Urea Nitrogen 14 mg/dl (7-17); Calcium 9.2 mg/dl (8.4-10.2); Carbon Dioxide 21 mmol/L (22.0-30.0); Chloride 109 mmol/L (98-107); Creatinine Clearance Estimated 135 mL/min (50-200); Estimated Glomerular Filt Rate 77 ml/min (>60); GFR (African American) 93 ML/MIN (>60); Glucose 99 mg/dl (74-100); Potassium 4.6 mmoL/L (3.5-5.1); Sodium 134 mmol/L (136-145)
[2021-12-24 05:15] LABS: D-Dimer 2.59 ug/mL (0.0-0.5)
--- NOTE | 2021-12-24 08:36 | HMH.HP ---
*Admission Date: 12/23/21 *Chief complaint: Increased blood pressure, term *History of present illness: She is a 26-year-old 1 para 0 at 39+ weeks gestational age. Her blood pressure is slightly increased in the 140/90 range. She denies any symptoms. She denies any headache, scotomata or epigastric pain. She has been having irregular contractions for a number of weeks now. She has not really changed her cervix. As result of that she is admitted for augmentation of labor. [facility] History I have reviewed the patient's past medical history: Yes Medical History: Reports:: Anxiety Denies:: Cancer, Diabetes Mellitus Type 1, Diabetes Mellitus Type 2, Hypertension, Internal Pacemaker, MRSA, Seizures *Have you ever received a pneumonia vaccine?: No *Have you received a flu vaccine this season?: Yes Other Medical History: Denies: Blood Transfusion Reaction Other Surgeries: Yes: Dilation and Curettage, Other. No: , Pacemaker Amputation: No Fractures: No - *Social History Smoking Status: Never smoker Alcohol Intake: never Alcohol Intake Frequency:: other Substance Use Type: denies use *Occupational Status:: employed Housing: house Household Members: significant other *Travel in the last 8 weeks: None - Psychiatric History Pschychiatric History:: Reports:: Anxiety Family Hx:: No significant family history Para: 0 Review of Systems - Review of Systems Review of systems:: pertinent systems reviewed and negative unless documented below Meds Home Medications Medication Instructions Recorded Confirmed Type prenat.vits,moustapha,wjd-kuyi-fokqc 1 tab PO DAILY 01/01/21 12/23/21 History Escitalopram Oxalate 10 mg PO DAILY 11/06/21 12/23/21 History Famotidine [Acid Agile Business Analyst] 20 mg PO BID 11/06/21 12/23/21 History Ferrous Sulfate 325 mg PO DAILY 11/06/21 12/23/21 History Allergies Allergy/AdvReac Type Severity Reaction Status Date / Time ciprofloxacin [From Cipro] Allergy Verified 12/18/21 08:11 nitrofurantoin Allergy Verified 12/18/21 08:11 [From Macrobid] Exam Vital signs and Labs for Last 24 Hours: Temp Pulse Resp BP Pulse Ox 98.3 F 86 18 131/90 98 12/23/21 16:51 12/23/21 16:51 12/23/21 16:51 12/23/21 16:51 12/23/21 16:51 Laboratory Results - last 24 hr 12/23/21 16:18: Urine Color Yellow, Urine Appearance Clear, Urine pH 6.0, Ur Specific [place] 1.025, Urine Protein Trace, Urine Glucose (UA) Negative, Urine Ketones Negative, Urine Blood 1+, Urine Nitrate Negative, Urine Bilirubin Negative, Urine Urobilinogen 0.2, Ur Leukocyte Esterase Negative, Urine RBC 5-10, Urine WBC None, Ur Squamous Epith Cells Occasional, Urine Bacteria None 12/23/21 16:18: Urine Opiates Screen Negative, Urine Methadone Screen Negative, Ur Barbituates Screen Negative, Ur Phencyclidine Scrn Negative, Ur Amphetamines Screen Negative, U Benzodiazepines Scrn Negative, Urine Cocaine Screen Negative, U Marijuana (THC) Screen Negative 12/23/21 16:25: WBC 9.6, RBC 3.80 L, Hgb 12.2, Hct 37.5, MCV 98.7, MCH 32.2 H, MCHC 32.6, RDW 13.8, Plt Count 254, MPV 8.7, Neut % (Auto) 72.4, Lymph % (Auto) 20.9, Adams % (Auto) 5.2, Eos % (Auto) 0.8, Baso % (Auto) 0.7, Neut # (Auto) 7.0, Lymph # (Auto) 2.0, Adams # (Auto) 0.5, Eos # (Auto) 0.1, Baso # (Auto) 0.1 12/23/21 16:25: Blood Type A Positive, Antibody Screen Positive 12/23/21 16:25: Sodium 133 L, Potassium 3.7, Chloride 108 H, Carbon Dioxide 20 L, Anion Gap 8.7, BUN 13, Creatinine 1.10 H, Estimated Creat Clear 110, Estimated GFR 61, Est GFR ( Amer) 74, Glucose 115 H, Calcium 9.3 12/23/21 16:25: SARS-CoV-2 (PCR) Not detected, Influenza A Untype (PCR) Not detected, Influenza Type B (PCR) Not detected 12/24/21 04:25: WBC 9.0, RBC 3.89 L, Hgb 12.4, Hct 37.9, MCV 97.3, MCH 31.9 H, MCHC 32.8, RDW 13.9, Plt Count 255, MPV 8.6, Neut % (Auto) 63.7, Lymph % (Auto) 26.6, Adams % (Auto) 7.1, Eos % (Auto) 1.7, Baso % (Auto) 0.9, Neut # (Auto) 5.7, Lymph # (Auto) 2.4, Adams # (Auto) 0.6, Eos # (A
--- NOTE | 2021-12-24 08:39 | HMH.LABNOT ---
Labor Note - Subjective: Date: 12/24/21 Time: 08:39 regular contraction - Objective: NST:: Reactive Contractions:: every 2-3 minutes Cervical Dilation:: 2-3 Effacement:: 90% Station: -1 Membranes: artificially ruptured Comment:: I ruptured her membranes and there was thin meconium. - Fetus: Monitoring?: Yes monitoring type:: Internal and External Comment:: I inserted an IUPC. - Assessment: Labor progressing?: Yes Cephalopelvic disproportion?: No Patient Problems: All Active Problems Normal delivery at term (Acute) induced hypertension, antepartum (Acute) labor in third trimester (Acute) (Acute) Anxiety (Chronic) - Plan: Anesthesia for epidural?: Yes Continue to labor down?: Yes Plan for ?: No Continue to monitor?: Yes Start pushing?: No Comment:: The baby's head is well down in the pelvis. I was able to rupture her membranes. Her cervix is quite thinned out. We will expect a vaginal delivery.
--- NOTE | 2021-12-24 10:58 | P.PN_ITS ---
[facility] Anesthesia Checklist - Patient Identification Patient Identification: Arm Band - Structural Data Admitted From: Home Planned Operative Procedure/s: labor epidural Consent for Planned Operative Procedure(s) Verified: Yes Verified Documents: Surgical Consent, History and Physical - NPO Status Verified Time NPO: 00:00 - Additional verifications Anesthesia Reactions: No Hx Blood Transfusions: No Blood Transfusion Reaction: No - Airway Assessment C-Spine Mobility Assessed: Yes TMJ Mobility Assessed: Yes Dentition: Good Dentition - Neurological Assessment Level of Consciousness: Awake, Alert - Anesthesia Plan Anesthesia Risk discussed: Yes Anesthesia Plan: Verified ASA Class: II Anesthesia Type: Epidural [facility] History I have reviewed the patient's past medical history: Yes Medical History: Reports:: Anxiety Denies:: Cancer, Diabetes Mellitus Type 1, Diabetes Mellitus Type 2, Hypertension, Internal Pacemaker, MRSA, Seizures *Have you ever received a pneumonia vaccine?: No *Have you received a flu vaccine this season?: Yes Other Medical History: Denies: Blood Transfusion Reaction Anesthesia experience/problems:: nac Other Surgeries: Yes: Dilation and Curettage, Other. No: , Pacemaker Amputation: No Fractures: No - *Social History Smoking Status: Never smoker Alcohol Intake: never Alcohol Intake Frequency:: other Substance Use Type: denies use *Occupational Status:: employed Housing: house Household Members: significant other *Travel in the last 8 weeks: None - Psychiatric History Pschychiatric History:: Reports:: Anxiety Family Hx:: No significant family history Para: 0
--- NOTE | 2021-12-24 11:27 | HMH.LABNOT ---
Labor Note - Subjective: Date: 12/24/21 Time: 11:27 regular contraction - Objective: NST:: Reactive Contractions:: every 2-3 minutes Cervical Dilation:: 3-4 Effacement:: 90% Station: -1 Membranes: artificially ruptured - Fetus: Monitoring?: Yes monitoring type:: Internal and External - Assessment: Labor progressing?: Yes Cephalopelvic disproportion?: No Patient Problems: All Active Problems Normal delivery at term (Acute) induced hypertension, antepartum (Acute) labor in third trimester (Acute) (Acute) Anxiety (Chronic) - Plan: Anesthesia for epidural?: Yes Continue to labor down?: Yes Plan for ?: No Continue to monitor?: Yes Start pushing?: No
--- NOTE | 2021-12-24 13:46 | HMH.LABNOT ---
Labor Note - Subjective: Date: 12/24/21 Time: 13:46 regular contraction - Objective: NST:: Reactive Contractions:: every 2-3 minutes Cervical Dilation:: 4 Effacement:: 90% Station: -1 Membranes: artificially ruptured - Fetus: Monitoring?: Yes monitoring type:: Internal and External - Assessment: Labor progressing?: No Cephalopelvic disproportion?: No Patient Problems: All Active Problems Normal delivery at term (Acute) induced hypertension, antepartum (Acute) labor in third trimester (Acute) (Acute) Anxiety (Chronic) - Plan: Anesthesia for epidural?: Yes Continue to labor down?: Yes Plan for ?: Yes Continue to monitor?: Yes Start pushing?: No Comment:: She really has not progressed much over the last 3 hours. The head has not come down any further and the cervix is not dilated anymore. We will see how she does over the next few hours. If she does not progress beyond where she is then we will consider a .
--- NOTE | 2021-12-24 16:45 | HMH.LABNOT ---
Labor Note - Subjective: Date: 12/24/21 Time: 16:10 regular contraction - Objective: NST:: Reactive Contractions:: every 2-3 minutes Cervical Dilation:: 5-6 Effacement:: 100% Station: 0 Membranes: artificially ruptured - Fetus: Monitoring?: Yes monitoring type:: Internal and External - Assessment: Labor progressing?: Yes Cephalopelvic disproportion?: No Patient Problems: All Active Problems Normal delivery at term (Acute) induced hypertension, antepartum (Acute) labor in third trimester (Acute) (Acute) Anxiety (Chronic) - Plan: Anesthesia for epidural?: Yes Continue to labor down?: Yes Plan for ?: No Continue to monitor?: Yes Start pushing?: No Comment:: She has progressed from 4 to 6 cm. The cervix is thinned out somewhat and the baby's head is come down a bit. We will continue to monitor her closely. We will hopefully expect a vaginal delivery. I reinserted an IUPC as well.
--- NOTE | 2021-12-24 19:31 | PC.NURSE ---
SURGERY TEAM CALLED, SPOKE WITH EAN. RAMIRO CORTES AWARE.
--- NOTE | 2021-12-24 19:31 | HMH.LABNOT ---
Labor Note - Subjective: Date: 12/24/21 Time: 19:31 regular contraction - Objective: NST:: Reactive Contractions:: every 2-3 minutes Cervical Dilation:: 6 Effacement:: 100% Station: -1 Membranes: artificially ruptured - Fetus: Monitoring?: Yes monitoring type:: Internal and External - Assessment: Labor progressing?: No Cephalopelvic disproportion?: Yes Patient Problems: All Active Problems Normal delivery at term (Acute) induced hypertension, antepartum (Acute) labor in third trimester (Acute) (Acute) Anxiety (Chronic) - Plan: Anesthesia for epidural?: Yes Continue to labor down?: No Plan for ?: Yes Continue to monitor?: Yes Start pushing?: No Comment:: She really has failed to progress beyond 6 cm. The head is still high. Given this we will go ahead and do a section for failure to progress and pelvic disproportion. We discussed the risks of surgery that includes bleeding, infection, injuries to the bowel and bladder. We discussed the rare risk of DVT. We discussed the need for DVT prophylaxis. All questions were answered and consents were signed. I spoke to her with her mother her sister and her present.
--- NOTE | 2021-12-24 19:50 | P.PN_ITS ---
[facility] Anesthesia Checklist - Patient Identification Patient Identification: Arm Band, Verbal (Name & ) - Structural Data Admitted From: Inpatient Planned Operative Procedure/s: Consent for Planned Operative Procedure(s) Verified: Yes Verified Documents: Surgical Consent - NPO Status Verified Time NPO: 00:00 - Chart Verification Results Verified: CBC - Additional verifications Anesthesia Reactions: No Hx Blood Transfusions: No Blood Transfusion Reaction: No - Airway Assessment C-Spine Mobility Assessed: Yes TMJ Mobility Assessed: Yes Dentition: Good Dentition - Neurological Assessment Level of Consciousness: Awake, Alert, Appropriate - Anesthesia Plan Anesthesia Risk discussed: Yes ASA Class: II Anesthesia Type: Epidural [facility] History I have reviewed the patient's past medical history: Yes Medical History: Reports:: Anxiety Denies:: Cancer, Diabetes Mellitus Type 1, Diabetes Mellitus Type 2, Hypertension, Internal Pacemaker, MRSA, Seizures *Have you ever received a pneumonia vaccine?: No *Have you received a flu vaccine this season?: Yes Other Medical History: Denies: Blood Transfusion Reaction Anesthesia experience/problems:: nac Other Surgeries: Yes: Dilation and Curettage, Other. No: , Pacemaker Amputation: No Fractures: No - *Social History Smoking Status: Never smoker Alcohol Intake: never Alcohol Intake Frequency:: other Substance Use Type: denies use *Occupational Status:: employed Housing: house Household Members: significant other *Travel in the last 8 weeks: None - Psychiatric History Pschychiatric History:: Reports:: Anxiety Family Hx:: No significant family history Para: 0
--- NOTE | 2021-12-24 21:09 | HMH.OPNOTE ---
Date of procedure: 12/24/21 Pre-op Diagnosis:: Term , mild -induced hypertension, pelvic disproportion Post-op Diagnosis:: Term , pelvic disproportion, -induced hypertension, uterine atony Procedure performed:: Primary lower segment transverse section. B-[place]oenix suture Surgeon:: Clayton Barlow MD Master Esthetician(s):: Dr. Kauffman REPAIRER PUMP:: Other (Mushtaq Garcia) Anesthesia: epidural Estimated blood loss (mL): 600 Clinical Note:: She is a 26-year-old 2 para 0 at 39+ weeks gestational age. She was having lots of contractions and pressure. Her blood pressure was also slightly elevated so we elected to deliver her at term. She was started on IV oxytocin had her membranes ruptured and really failed to progress beyond 6 cm. She had been sick centimeters for about 5 to 6 hours. As result of that we diagnosed her with pelvic disproportion and she was taken for a primary lower segment transverse section. The risks and benefits of surgery were discussed with the patient and her family prior to surgery. Operative findings:: She delivered a liveborn female child at 8:27 PM in the evening of December 24, 2021. The baby had Apgars of 8 at 1 minute and 9 at 5 minutes. Ovaries and tubes appeared normal. The uterus was somewhat boggy. Operative note:: She was taken to the operating room where spinal anesthesia was found be adequate. She was prepped and draped in normal sterile fashion in the supine position with a leftward tilt. A Arias catheter was in the bladder. A Pfannenstiel skin incision was made with knife then carried through to the underlying layer of fascia with cautery. The fascia was opened in the midline with cautery and extended laterally using Dominguez scissors. Kaylie clamps were applied to the superior aspect of the fascial incision which was tented up and the underlying rectus muscles dissected off using cautery. The [place] clamps were then applied to the inferior aspect of the fascial incision which in a similar fashion was tented up and the underlying rectus muscles dissected off using cautery. The rectus muscles were then in the midline, the peritoneum identified, and entered sharply with Metzenbaum scissors. This incision was then extended superiorly and inferiorly with cautery. We had good visualization of the bladder inferiorly. We then inserted an Poncho retractor. The bladder peritoneum was then opened in the midline and extended laterally using Metzenbaum scissors. A bladder flap was created digitally. Transverse incision was made through the uterine muscle to the amnion. This incision was then extended laterally using fingers traction. The amnion was entered sharply with knife. There was clear amniotic fluid. The 's head was then delivered atraumatically. This was followed by the anterior shoulder and the rest of the 's body atraumatically. The oropharynx and nasopharynx were gently suctioned. There was thin meconium. The baby was vigorous and we allowed the cord to continue to pulsate for approximately 30 seconds. The was then handed off to Dr. Hicks who assigned Apgars of 8 at 1 minute and 9 at 5 minutes. We then obtained cord blood. Using gentle traction on the cord and countertraction on the fundus I was able to easily deliver the placenta intact. It had a normal three-vessel cord. The uterus was then cleared of clots and debris . The uterine incision was then closed using running 0 Vicryl suture in a locked fashion. A second layer of the same suture was used to imbricate the first layer. The bladder peritoneum was then closed using running 2-0 Vicryl suture in a locked fashion. The gutters and cul-de-sac were then cleared of clots and debris . Once again hemostasis was assured. The uterus was somewhat boggy so we gave her 1 dose of Hemabate and then performed debridement suture. Using a #1 Vicryl suture I then took a large bite anteriorl
--- NOTE | 2021-12-24 21:21 | P.PN_ITS ---
[facility] Anesthesia Record Part I Intake, IV Amount: 1,200 Estimated blood loss (mL): 600 Urine output (mL): 300 Blood Pressure: 159/110 SaO2: 98 Pulse Rate: 83 Respiratory Rate: 18 Temperature: 98.7 F Patient is:: Drowsy Stable to PACU at:: 21:15
--- NOTE | 2021-12-24 22:06 | SUR.PHASEI ---
[id number] called and gave detailed report to NICO Edmondson RN [id number] transported via bed to OB room. vital signs stable. denies pain at rest. pt left in stable condition with NICO Edmondson RN at bedside.
[2021-12-25 07:12] LABS: Hematocrit 32.5 % (37.0-47.0); Hemoglobin 10.8 g/dL (12.2-16.2)
[2021-12-25 08:06] VITALS: BP 126/77; PULSE 94; RESP 18; TEMP 36.6; O2SAT 98
--- NOTE | 2021-12-25 08:51 | P.PN_ITS ---
Internal Medicine - PN: Subj *Date: 12/25/21 *Time: 08:51 Interval history: She is doing very well this morning. She is eating and drinking and ambulating. She is breast-feeding. Her lochia is normal. Her pain is well controlled with the tap block Exam Vital signs and Labs for Last 24 Hours: Temp Pulse Resp BP Pulse Ox 97.8 F 94 H 18 126/77 98 12/25/21 08:06 12/25/21 08:06 12/25/21 08:06 12/25/21 08:06 12/25/21 08:06 Laboratory Results - last 24 hr 12/23/21 16:25: Antibody Identification See Comments 12/25/21 06:45: Hgb 10.8 L, Hct 32.5 L I & O for Last 24 hours: Intake & Output 12/22/21 12/23/21 12/24/21 12/25/21 11:59 11:59 11:59 11:59 Intake Total 1800 / 1800 Output Total 1300 / 1300 Balance 500 / 500 Weight 195 lb 0.017 oz - Constitutional no acute distress - *Routine HEENT Exam Head: Present: normocephalic Eye: Present: EOMI, PERRL ENT: Present: mucous membranes moist - *Routine Abdominal Exam Present: soft, normoactive bowel sounds. Absent: tenderness Comments: Her incision is clean and dry Assessment and Plan (1) induced hypertension, antepartum Status: Acute Category: Medical Code(s): O13.9 - Gestational [- induced] hypertension without significant proteinuria, unspecified trimester (2) pelvic disproportion delivered Status: Acute Category: Medical Code(s): O33.9 - Maternal care for disproportion, unspecified (3) delivery delivered Status: Acute Category: Medical Code(s): O82 - Encounter for delivery without indication - Assessment and plan all Dx Assessment and Plan for all problems:: She is 1 day post delivery and doing well. She is breast-feeding. Her lochia is normal. Her hemoglobin is stable.
--- NOTE | 2021-12-25 10:20 | HMH.PHAVTE ---
[facility] Pharmacy VTE Monitoring - Patient Demographics Admission date: 12/23/21 Report Date: 12/25/21 Time: 10:21 Allergies/Adverse Reactions: Patient Allergies ciprofloxacin [From Cipro] Allergy (Verified 12/18/21 08:11) nitrofurantoin [From Macrobid] Allergy (Verified 12/18/21 08:11) Height: 1.68 m Weight: 88.451 kg Patient Problems: Current Active Problems Normal delivery at term (Acute) induced hypertension, antepartum (Acute) pelvic disproportion delivered (Acute) delivery delivered (Acute) - VTE Risk Labs: VTE Related Lab Results Hgb 10.8 g/dL (12.2-16.2) L 12/25/21 06:45 Hct 32.5 % (37.0-47.0) L 12/25/21 06:45 Plt Count 255 K/mm3 (142-424) 12/24/21 04:25 PT 10.0 seconds (10.1-12.5) L 12/24/21 04:25 INR 0.88 (0.9-1.1) L 12/24/21 04:25 APTT 24.1 seconds (22.8-30.6) 12/24/21 04:25 Fibrinogen 356 mg/dL (229.9-363.5) 12/24/21 04:25 BUN 14 mg/dl (7-17) 12/24/21 04:25 Creatinine 0.90 mg/dl (0.52-1.04) 12/24/21 04:25 Estimated Creat Clear 135 mL/min (50-200) 12/24/21 04:25 - Prophylaxis VTE Prophylaxis Ordered?: Yes Types of VTE Prophylaxis: IPCS Thigh High Location of Applied Device: Bilateral Lower Extremeties
--- NOTE | 2021-12-25 13:46 | HMH.ANESII ---
[facility] Anesthesia Record Part II Discharge Time: 22:00 Destination: Obstetric PACU nurse assessment reviewed?: Yes Patient Condition:: Good Anesthesia Complications:: None Swallowing reflex intact?: Yes Cyanosis?: No Blood Pressure: 158/87 Pulse Rate: 90 Temperature: 98.4 F Mental Status: Alert & Oriented Pain level:: 8 (with fundal massage) Nausea and/or vomitting:: None Intake, IV Amount: 0
[2021-12-25 13:47] VITALS: BP 158/87; PULSE 90; TEMP 36.9
[2021-12-25 16:11] VITALS: BP 119/76; PULSE 88; RESP 18; TEMP 36.7; O2SAT 96
--- NOTE | 2021-12-26 09:06 | P.PN_ITS ---
Internal Medicine - PN: Subj *Date: 12/26/21 *Time: 09:06 Interval history: She is doing very well this morning. She would like to stay another day. 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 We will keep her till tomorrow morning. Exam Vital signs and Labs for Last 24 Hours: Temp Pulse Resp BP Pulse Ox 98.1 F 88 18 119/76 96 12/25/21 16:11 12/25/21 16:11 12/25/21 16:11 12/25/21 16:11 12/25/21 16:11 I & O for Last 24 hours: Intake & Output 12/23/21 12/24/21 12/25/21 12/26/21 11:59 11:59 11:59 11:59 Intake Total 1800 / 1800 0 / 0 Output Total 1300 / 1300 Balance 500 / 500 0 / 0 Weight 195 lb 0.017 oz - Constitutional no acute distress - *Routine HEENT Exam Head: Present: normocephalic Eye: Present: EOMI, PERRL ENT: Present: mucous membranes moist Assessment and Plan (1) induced hypertension, antepartum Status: Acute Category: Medical Code(s): O13.9 - Gestational [- induced] hypertension without significant proteinuria, unspecified trimester (2) pelvic disproportion delivered Status: Acute Category: Medical Code(s): O33.9 - Maternal care for disproportion, unspecified (3) delivery delivered Status: Acute Category: Medical Code(s): O82 - Encounter for delivery without indication - Assessment and plan all Dx Assessment and Plan for all problems:: She is doing well. She is breast-feeding. Her pain is reasonably well controlled. She would like to stay another day. We will discharge her home tomorrow.
--- NOTE | 2021-12-27 12:22 | HMH.DCSUM ---
General - General Admission date:: 12/23/21 Discharge date: 12/27/21 HPI HPI: She is a 26-year-old 1 para 0 at 39+ weeks gestational age. Her blood pressure is slightly increased in the 140/90 range. She denies any symptoms. She denies any headache, scotomata or epigastric pain. She has been having irregular contractions for a number of weeks now. She has not really changed her cervix. As result of that she is admitted for augmentation of labor. Hospital Course Hospital Course: course uncomplicated She is discharged home on POD #3 in stable condition She is ambulating and voiding without difficulty She is tolerating a regular diet She is asymptomatic with acute blood loss anemia; current Hgb 10.8 Lochia is appropriate Pain control is sufficient Rhogam Administration: Not Indicated Objective Vital signs: Temp Pulse Resp BP Pulse Ox 98.1 F 88 18 119/76 96 12/25/21 16:11 12/25/21 16:11 12/25/21 16:11 12/25/21 16:11 12/25/21 16:11 Narrative: CONSTITUTIONAL: no acute distress HEENT: mucous membranes moist PULMONARY: breathing unlabored without audible wheezes CV: no tachycardia or visible JVD; normal LE peripheral pulses ABD: soft, ND; appropriately tender but no rebound/guarding : fundus firm below umbilicus SKIN: incision well approximated with no drainage, erythema or induration EXT: 1+ edema LEs NEURO: alert/oriented, no altered mental status PSYCH: appropriate mood and demeanor without anxiety/depression DS: Diagnosis - Discharge Diagnosis (1) induced hypertension, antepartum Status: Acute (2) pelvic disproportion delivered Status: Acute (3) delivery delivered Status: Acute Discharge Plan - Patient Discharge Instructions ACTIVITY: Continue current activity DIET: regular diet Additional Instructions: Nothing in the vagina for 6 weeks No tub baths or driving until released Drink plenty of fluids Patient Instructions: Depression, Hemorrhage, DI for , DI for Pre-eclampsia, [facility] Post Discharge Instructions, Preventing the Spread of Coronavirus Discharge Instructions - Follow up Plan Follow up with: Clayton Barlow MD [Primary Care Provider] - 01/07/22 3:15 pm Disposition: Home, Self-Care Condition at discharge:: Stable Home Medications: Home Medications Medication Instructions Recorded Confirmed Type prenat.vits,moustapha,olt-wvnf-pofwn 1 tab PO DAILY 01/01/21 12/23/21 History Escitalopram Oxalate 10 mg PO DAILY 11/06/21 12/23/21 History Famotidine [Acid Boot And Shoe Laborer] 20 mg PO BID 11/06/21 12/23/21 History Ferrous Sulfate 325 mg PO DAILY 11/06/21 12/23/21 History Ibuprofen [Motrin 400mg 800 mg PO Q6HP PRN #40 tab 12/27/21 Rx tablet] Oxycodone HCl [OxyIR 5mg tablet] 5 mg PO Q4HP PRN #24 tab 12/27/21 Rx Prescriptions/Medication Reconciliation: New Acetaminophen [Acetaminophen 325mg tab] 650 mg PO Q6H tab Oxycodone HCl [OxyIR 5mg tablet] 5 mg PO Q4HP PRN #24 tab PRN Reason: Moderate To Severe Pain Ibuprofen [Motrin 400mg tablet] 800 mg PO Q6HP PRN #40 tab PRN Reason: Mild To Moderate Pain Continued prenat.vits,moustapha,[id number]-fpjzo 1 tab PO DAILY Ferrous Sulfate 325 mg PO DAILY Famotidine [Acid Boot And Shoe Laborer] 20 mg PO BID Escitalopram Oxalate 10 mg PO DAILY - Problem Reconciliation Problems Reviewed?: Yes
== END 2021-12-27 13:45 | disposition home or self-care (01) | DRG 788 ==
PROVIDERS: Admitting Provider Nurse Practitioner Obstetrics & Gynecology; PCP Nurse Practitioner Obstetrics & Gynecology; Visit Provider Nurse Practitioner Obstetrics & Gynecology
PROC: 10D00Z1 Extraction of Products of Conception, Low, Open Approach (ICD-10-PCS; CPT 59514; principal; 2021-12-24 20:00)
DX: O13.4 Gestational [pregnancy-induced] hypertension without significant proteinuria, complicating childbirth (principal); Z3A.39 39 weeks gestation of pregnancy; Z37.0 Single live birth; O64.8XX0 Obstructed labor due to other malposition and malpresentation, not applicable or unspecified; O75.89 Other specified complications of labor and delivery
CPT/HCPCS: 59514; 36415; 59025; 80048; 80305; 81001; 84450; 84460; 84550; 85014; 85018; 85025; 85378; 85384; 85610; 85730; 86850; 86870; 94761; C1758; C9290; C9803; G0283; J0595; J2405; U0003; U0005

== ENCOUNTER 2022-06-04 18:49 | Emergency (ER) | payer OTHER, SELFPAY ==
[2022-06-04 18:50] VITALS: BP 149/89; PULSE 102; RESP 20; TEMP 37.1; O2SAT 98; BMI 30.1
--- NOTE | 2022-06-04 18:57 | EXP.UTC ---
Discharge Plan Disposition Patient Disposition: Home, Self-Care Condition: Good Prescriptions Prescriptions: No Action prenat.vits,moustapha,pop-ihbk-silws Tablet 1 tab PO DAILY Slynd 4 mg (28) tablet 1 tab PO DAILY Qty: 28 11RF escitalopram oxalate 10 mg tablet 10 mg PO DAILY Qty: 30 11RF famotidine 20 MG tablet 20 mg PO BID Latuda 20 mg tablet 20 mg PO DAILY Label Comments: TAKE 1 TABLET BY MOUTH ONCE DAILY, MUST TAKE WITH FOOD (AT LEAST 350 CALORIES) Referrals Follow up/Referrals: India Kessler PA [Primary Care Provider] - See instructions Activity Restrictions/Add. Instructions Additional Instructions/Restrictions: Drink plenty of fluids. Take tylenol or ibuprofen for pain or fever. Follow up with your regular doctor. GO TO THE ER FOR ANY WORSENING SYMPTOMS Clinical Impressions Clinical Impression: Acute viral syndrome Instructions Patient Instructions: DI for Viral Syndrome Discharge ED Provider: Dillon Eason [facility] General Stated complaint: wants to be checked for strep throat. Time Seen by Provider: 06/04/22 18:57 History of Present Illness Provider Complaint: She states that for the past 2 days she has had a scratchy sore throat and a low grade fever. Related Data Home Medications Medication Instructions Recorded Confirmed prenat.vits,moustapha,jfn-nhvk-noyov 1 tab PO DAILY Supplement 01/01/21 05/30/22 famotidine 20 mg tablet 20 mg PO BID acid reflux 11/06/21 05/30/22 lurasidone 20 mg tablet (Latuda) 20 mg PO DAILY . 06/04/22 06/04/22 Previous Rx's Medication Instructions Recorded drospirenone (contraceptive) 4 mg 1 tab PO DAILY #28 tabs 03/19/22 (28) tablet (Slynd) escitalopram oxalate 10 mg tablet 10 mg PO DAILY Depression #30 tabs 03/29/22 Allergies Allergy/AdvReac Type Severity Reaction Status Date / Time ciprofloxacin [From Cipro] Allergy Verified 06/04/22 19:01 nitrofurantoin Allergy Verified 06/04/22 19:01 [From Macrobid] [facility] Disclaimer: The information contained in this section may have been updated after the patient was seen, as this information can be updated by other users. Medical History Anxiety delivery delivered Social History Smoking Status: Never smoker second hand exposure: No alcohol intake: never substance use type: denies use current occupational status: employed Travel in the last 8 weeks: None household members: significant other housing: house current occupation: [employer] current occupational exposures/hazards: No caffeine: Yes ROS Obtained: Yes All systems reviewed & no additional complaints except as documented Constitutional Constitutional: Reports chills and Reports fever(s) Eyes Eyes: Denies eye discharge ENT Ears, Nose, Mouth, and Throat: Reports as per HPI Cardiovascular Cardiovascular: Denies chest pain Respiratory Respiratory: Denies chest congestion and Reports cough Gastrointestinal Gastrointestingal: Reports nausea; Denies abdominal pain, constipation, cramping, diarrhea or vomiting Musculoskeletal Musculoskeletal: Denies arthralgias Integumentary/Breasts Skin/Breast: Denies rash Neurologic Neurologic: Denies paresthesias Physical Exam General General appearance: alert and in no apparent distress Head Head exam: atraumatic, normocephalic and normal inspection Eye Eye exam: Present normal appearance, PERRL and EOMI ENT ENT exam: Present normal exam, normal oropharynx, mucous membranes moist, TM's normal bilaterally and normal external ear exam Neck Neck exam: Present normal inspection, full ROM and trachea midline; Absent meningismus or lymphadenopathy Chest Chest inspection: Present normal inspection and symmetric chest wall rise; Absent tenderness Respiratory Respiratory exam: Present normal lung sounds bilaterally;
[2022-06-04 19:08] LABS: UTC Strep Screen (Rapid) Negative (Negative)
[2022-06-04 19:15] VITALS: BP 149/89; PULSE 102; RESP 20; TEMP 37.1; O2SAT 98
== END 2022-06-04 19:15 | disposition home or self-care (01) ==
PROVIDERS: Emergency Provider Nurse Practitioner Family; PCP Physician Assistant
DX: B34.9 Viral infection, unspecified (principal)
CPT/HCPCS: 87880; 99212; G0463

== ENCOUNTER 2023-03-15 08:52 | Emergency (ER) | payer BC, SELFPAY ==
[2023-03-15 08:53] VITALS: BP 150/90; PULSE 114; RESP 18; TEMP 37.4; O2SAT 96; BMI 33.5
--- NOTE | 2023-03-15 09:16 | EXP.UTC ---
Discharge Plan Disposition Patient Disposition: Home, Self-Care Condition: Good Prescriptions Prescriptions: New amoxicillin 875 mg tablet 875 mg PO BID 10 Days Qty: 20 0RF No Action escitalopram oxalate 10 mg tablet 10 mg PO DAILY Qty: 30 11RF norgestimate-ethinyl estradiol [Sprintec (28)] 0.25-35 mg-mcg tablet 1 tab PO DAILY Qty: 84 3RF Referrals Follow up/Referrals: India Kessler PA [Primary Care Provider] - See instructions Clinical Impressions Clinical Impression: Strep pharyngitis Instructions Patient Instructions: DI for Strep Throat Discharge ED Provider: Silvia Prado [facility] [place] HPI General Stated complaint: Possible Strep Time Seen by Provider: 03/15/23 09:16 History of Present Illness Provider Complaint: Pt relates that her throat started being sore yesterday and is so sore today that she doesn't like to swallow her own spit. She works in daycare, but doesn't recall being around anyone sick. She states that she has taken Ibuprofen for her symptoms. Related Data Previous Rx's Medication Instructions Recorded escitalopram oxalate 10 mg tablet 10 mg PO DAILY Depression #30 tabs 03/29/22 norgestimate 0.25 mg-ethinyl 1 tab PO DAILY #84 tabs 08/19/22 estradiol 35 mcg tablet (Sprintec (28)) amoxicillin 875 mg tablet 875 mg PO BID 10 days #20 tabs 03/15/23 Allergies Allergy/AdvReac Type Severity Reaction Status Date / Time ciprofloxacin [From Cipro] Allergy Verified 03/15/23 09:17 nitrofurantoin Allergy Verified 03/15/23 09:17 [From Macrobid] [facility] Disclaimer: The information contained in this section may have been updated after the patient was seen, as this information can be updated by other users. Medical History (Updated 03/15/23 @ 09:28 by Silvia Prado APRN) Abnormal cervical Papanicolaou smear Anxiety delivery delivered Social History Smoking Status: Never smoker second hand exposure: No alcohol intake: never substance use type: denies use current occupational status: employed Travel in the last 8 weeks: None household members: significant other housing: house current occupation: [employer] town current occupational exposures/hazards: No caffeine: Yes ROS Obtained: Yes All systems reviewed & no additional complaints except as documented Constitutional Constitutional: Reports system reviewed and no additional complaints, except as documented and Reports malaise Eyes Eyes: Reports system reviewed and no additional complaints, except as documented ENT Ears, Nose, Mouth, and Throat: Reports system reviewed and no additional complaints, except as documented, Reports odynophagia and Reports sore throat Cardiovascular Cardiovascular: Reports system reviewed and no additional complaints, except as documented Respiratory Respiratory: Reports system reviewed and no additional complaints, except as documented Gastrointestinal Gastrointestingal: Reports odynophagia Genitourinary Female Genitourinary: Reports system reviewed and no additional complaints, except as documented Musculoskeletal Musculoskeletal: Reports system reviewed and no additional complaints, except as documented Integumentary/Breasts Skin/Breast: Reports system reviewed and no additional complaints, except as documented Neurologic Neurologic: Reports system reviewed and no additional complaints, except as documented Endocrine Endocrine: Reports system reviewed and no additional complaints, except as documented Hematologic/Lymphatic Henatologic/Lymphatic: Reports system reviewed and no additional complaints, except as documented Allergic/Immunologic Allergic/Immunologic: Reports system reviewed and no additional complaints, except as documented Physical Exam General General appearance: alert Comment: ill appearing Head Head exam: atraumatic and normocephalic Eye Eye exam: Present normal appeara
[2023-03-15 09:27] LABS: UTC Strep Screen (Rapid) Positive (Negative)
[2023-03-15 09:34] VITALS: BP 126/82; PULSE 114; RESP 18; TEMP 37.4; O2SAT 96
== END 2023-03-15 09:33 | disposition home or self-care (01) ==
PROVIDERS: Emergency Provider Nurse Practitioner Family; PCP Physician Assistant
DX: J02.0 Streptococcal pharyngitis (principal); F41.9 Anxiety disorder, unspecified
CPT/HCPCS: 87880; 99212; 99214; G0463

== ENCOUNTER 2023-07-04 09:28 | Emergency (ER) | payer BC, SELFPAY ==
--- NOTE | 2023-07-04 09:42 | ED_ITS ---
Discharge Plan Disposition Patient Disposition: Home, Self-Care Condition: Good Prescriptions Prescriptions: New amoxicillin 875 mg tablet 875 mg PO BID Qty: 20 0RF prednisone 20 mg tablet 20 mg PO BID Qty: 10 0RF No Action escitalopram oxalate 10 mg tablet 10 mg PO DAILY Qty: 90 3RF norgestimate-ethinyl estradiol [Sprintec (28)] 0.25-35 mg-mcg tablet 1 tab PO DAILY Qty: 84 3RF Referrals Follow up/Referrals: India Kessler PA [Primary Care Provider] - See instructions Activity Restrictions/Add. Instructions Additional Instructions/Restrictions: COVID19 pending Clinical Impressions Clinical Impression: Bilateral otitis media Stand Alone Forms Stand Alone Forms: Work/School Release Instructions Patient Instructions: DI for Otitis Media (Middle Ear Infection)-Child Discharge ED Provider: India Kessler [facility] [place] HPI General Stated complaint: fever [address] runny nose Time Seen by Provider: 07/04/23 10:58 History of Present Illness Provider Complaint: Sore throat, cough, headache, fever since last night. 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 Onset (ago): day(s) (1) Location: head Relieving factors: none Exacerbating factors: none Associated symptoms: denies other symptoms Treatments prior to arrival: none Related Data Previous Rx's Medication Instructions Recorded norgestimate 0.25 mg-ethinyl 1 tab PO DAILY #84 tabs 08/19/22 estradiol 35 mcg tablet (Sprintec (28)) escitalopram oxalate 10 mg tablet 10 mg PO DAILY Depression #90 tabs 03/17/23 amoxicillin 875 mg tablet 875 mg PO BID #20 tabs 07/04/23 prednisone 20 mg tablet 20 mg PO BID #10 tabs 07/04/23 Allergies Allergy/AdvReac Type Severity Reaction Status Date / Time ciprofloxacin [From Cipro] Allergy Verified 07/04/23 10:52 nitrofurantoin Allergy Verified 07/04/23 10:52 [From Macrobid] [facility] Disclaimer: The information contained in this section may have been updated after the patient was seen, as this information can be updated by other users. Medical History (Updated 07/04/23 @ 11:03 by FELIPA Hardin) Abnormal cervical Papanicolaou smear Anxiety Surgical History History of delivery Family History Other No significant family history Social History Smoking Status: Never smoker second hand exposure: No alcohol intake: never substance use type: denies use current occupational status: employed Travel in the last 8 weeks: None household members: significant other housing: house current occupation: [id number] current occupational exposures/hazards: No caffeine: Yes ROS Obtained: Yes All systems reviewed & no additional complaints except as documented Constitutional Constitutional: Reports body ache, Reports chills, Reports fever(s) and Reports malaise ENT Ears, Nose, Mouth, and Throat: Reports sinus pain and Reports sore throat Physical Exam General General appearance: alert Comment: ill appearing Head Head exam: atraumatic and normocephalic Eye Eye exam: Present normal appearance Expanded ENT Exam External ear exam: Present normal external inspection TM/Canal exam: Bilateral TM: erythema Nose exam: Present sinus tenderness Nasal speculum exam: Bilateral: normal Mouth exam: Present normal external inspection Teeth exam: Present normal inspection Throat exam: Present tonsillar erythema and tonsillomegaly Neck Neck exam: Present lymphadenopathy Chest Chest inspection: Present normal inspection and symmetric chest wall rise Respiratory Respiratory exam: Present normal lung sounds bilaterally Cardiovascular Cardiovascular exam: Present regular rate and normal rhythm Abdominal Exam Abdominal exam: Present soft and normal bowel sounds Extremities Exam Extremities exam: Present normal inspection Back Exam Back exam: Present normal inspection Neurological Exam Neurological exam: Present alert and oriented X3 Psychiatric Psychiatric exam: Present normal affect and normal mood Skin Skin exam: Present warm, dry and intact Lymphatic Lymphatic Findings: no adenopathy Medical Decision Making Amadeo Inquiry Pt receiving controlled substance: No Lab Data Lab results reviewed: Yes I reviewed the patient's lab results.
[2023-07-04 10:35] VITALS: BP 160/95; PULSE 109; RESP 14; TEMP 37.1; O2SAT 98; BMI 31.8
[2023-07-04 11:09] LABS: UTC Influenza A Antigen Negative (Negative); UTC Strep Screen (Rapid) Negative (Negative)
[2023-07-04 11:10] LABS: UTC Influenza B Antigen Negative (Negative)
[2023-07-04 11:10] LABS: Coronavirus 19, PCR Not Detected (NotDetected); Influenza B, PCR Not Detected (NotDetected)
[2023-07-04 11:20] VITALS: BP 160/95; PULSE 109; RESP 14; TEMP 37.1; O2SAT 98
[2023-07-04 11:39] LABS: Influenza A, PCR Detected (NotDetected)
== END 2023-07-04 11:20 | disposition home or self-care (01) ==
PROVIDERS: Emergency Provider Physician Assistant; PCP Physician Assistant
DX: J10.83 Influenza due to other identified influenza virus with otitis media (principal); H66.93 Otitis media, unspecified, bilateral; R50.9 Fever, unspecified; R05.9 Cough, unspecified; R07.0 Pain in throat; R51.9 Headache, unspecified
CPT/HCPCS: 87636; 87804; 87880; 99212; 99214; G0463

== ENCOUNTER 2023-07-05 17:28 | Emergency (ER) | payer BC, SELFPAY ==
[2023-07-05 18:00] VITALS: BP 142/84; PULSE 91; RESP 18; TEMP 37.2; O2SAT 97; BMI 33.3
--- NOTE | 2023-07-05 18:13 | EXP.UTC ---
Discharge Plan Disposition Patient Disposition: Home, Self-Care Condition: Good Prescriptions Prescriptions: No Action escitalopram oxalate 10 mg tablet 10 mg PO DAILY Qty: 90 3RF norgestimate-ethinyl estradiol [Sprintec (28)] 0.25-35 mg-mcg tablet 1 tab PO DAILY Qty: 84 3RF oseltamivir [Tamiflu] 75 mg capsule 75 mg PO BID 5 Days Qty: 10 0RF amoxicillin 875 mg tablet 875 mg PO BID Qty: 20 0RF prednisone 20 mg tablet 20 mg PO BID Qty: 10 0RF Referrals Follow up/Referrals: India Kessler PA [Primary Care Provider] - See instructions Activity Restrictions/Add. Instructions Additional Instructions/Restrictions: Stop the prednisone and tamiflu. Finish the antibiotics. If you vision gets worse or doesn't improve please return and go to the ER. Follow up with your regular doctor. GO TO THE ER FOR ANY WORSENING SYMPTOMS Clinical Impressions Clinical Impression: Influenza, Change in vision Instructions Patient Instructions: DI for Influenza -- Adult, DI for Visual Field Disturbances Discharge ED Provider: Dillon Eason [facility] [place] General Stated complaint: impaired vision , Positive for the flu Time Seen by Provider: 07/05/23 18:13 History of Present Illness Provider Complaint: She states that she has had blurry vision in her right eye since earlier today. She was diagnosed with influenza yesterday. She was started on tamiflu, prednisone and amoxicillin then. She denies any headache and any other symptoms. Related Data Previous Rx's Medication Instructions Recorded norgestimate 0.25 mg-ethinyl 1 tab PO DAILY #84 tabs 08/19/22 estradiol 35 mcg tablet (Sprintec (28)) escitalopram oxalate 10 mg tablet 10 mg PO DAILY Depression #90 tabs 03/17/23 amoxicillin 875 mg tablet 875 mg PO BID #20 tabs 07/04/23 oseltamivir 75 mg capsule (Tamiflu) 75 mg PO BID 5 days #10 caps 07/04/23 prednisone 20 mg tablet 20 mg PO BID #10 tabs 07/04/23 Allergies Allergy/AdvReac Type Severity Reaction Status Date / Time ciprofloxacin [From Cipro] Allergy Verified 07/05/23 18:18 nitrofurantoin Allergy Verified 07/05/23 18:18 [From Macrobid] [facility] Disclaimer: The information contained in this section may have been updated after the patient was seen, as this information can be updated by other users. Medical History (Updated 07/05/23 @ 18:36 by Dillon Eason APRN) Abnormal cervical Papanicolaou smear Anxiety Surgical History History of delivery Family History Other No significant family history Social History Smoking Status: Never smoker second hand exposure: No alcohol intake: never substance use type: denies use current occupational status: employed Travel in the last 8 weeks: None household members: significant other housing: house current occupation: [employer] current occupational exposures/hazards: No caffeine: Yes ROS Obtained: Yes All systems reviewed & no additional complaints except as documented Constitutional Constitutional: Denies chills, Denies fever(s), Denies headache(s) and Denies weakness Eyes Eyes: Reports as per HPI, Reports blurry vision, Denies eye discharge and Denies loss of vision ENT Ears, Nose, Mouth, and Throat: Denies abnormal hearing, Denies disequilibrium, Denies dizziness, Denies otalgia, Denies headache(s) and Denies sore throat Cardiovascular Cardiovascular: Denies chest pain and Denies syncope Respiratory Respiratory: Denies shortness of breath, Denies chest congestion, Denies cough, Denies stridor and Denies wheezing Gastrointestinal Gastrointestingal: Denies nausea or vomiting Musculoskeletal Musculoskeletal: Reports system reviewed and no additional complaints, except as documented, Denies abnormal gait, Denies arthralgias, Denies numbness and Denies tingling Integumentary/Breasts Skin/Breast: Denies rash Neurologic Neurologic: Denies abnormal gait, Denies abnormal hearing, Denies abnormal speech, Denies confusion, Denies disequilibrium, Denies dizziness, Denies focal weakness, Denies headache(s), Denies loss of vision, Denies numbness, Reports other visual disturbances, Denies paresthesias, Denies syncope, Denies tingling and Denies weakness Allergic/Immunologic Allergic/Immunologic: Denies wheezing Physical Exam General General appearance: alert and in no apparent distress Head Head exam: atraumatic, normocephalic and normal inspection Eye Eye exam: Present normal appearance, PERRL and EOMI Expanded Eye Exam Eyelids: bilateral: normal inspection Pupils: Left: size (2), Right: size (2) and Bilateral: regular, round and reactive Sclera/Conjunctival: bilateral: normal inspection Visual acuity (R) = 20/: 20 Visual acuity (L) = 20/: 20 With correction: Yes ENT ENT exam: Present normal exam, normal oropharynx, mucous membranes moist, TM's normal bilaterally and normal external ear exam Neck Neck exam: Present normal inspection, full ROM and trachea midline; Absent meningismus or lymphadenopathy Chest Chest inspection: Present normal inspection and symmetric chest wall rise; Absent tenderness Respiratory Respiratory exam: Present normal lung sounds bilaterally; Absent respiratory distress Cardiovascular Cardiovascular exam: Present regular rate and normal rhythm; Absent JVD Abdominal Exam Abdominal exam: Present soft and normal bowel sounds; Absent distention, tenderness or guarding Extremities Exam Extremities exam: Present normal inspection, full ROM and normal capillary refill; Absent calf tenderness Back Exam Back exam: Present normal inspection; Absent tenderness Neurological Exam Neurological exam: Present alert and oriented X3 Psychiatric Psychiatric exam: Present normal affect and normal mood Skin Skin exam: Present warm, dry, intact and normal color Lymphatic Lymphatic Findings: no adenopathy Medical Decision Making Medical Records Medical records reviewed: No I reviewed the patient's medical records. Amadeo Fishman Pt receiving controlled substance: No Medical Decision Narrative: She refused transfer to the ER. She states that she will return if her symptoms get worse.
[2023-07-05 18:45] VITALS: BP 142/84; PULSE 91; RESP 18; TEMP 37.2; O2SAT 97
== END 2023-07-05 18:57 | disposition home or self-care (01) ==
PROVIDERS: Emergency Provider Nurse Practitioner Family; PCP Physician Assistant
DX: J10.1 Influenza due to other identified influenza virus with other respiratory manifestations (principal); H53.9 Unspecified visual disturbance
CPT/HCPCS: 99212; 99213; G0463

== ENCOUNTER 2024-06-21 16:05 | Emergency (ER) | payer BC, OTHER, SELFPAY ==
[2024-06-21 16:15] VITALS: BP 151/89; PULSE 76; RESP 19; TEMP 37.1; O2SAT 99; BMI 33.3
[2024-06-21 16:21] LABS: Coronavirus 19, PCR Not Detected (NotDetected); Influenza B, PCR Not Detected (NotDetected)
--- NOTE | 2024-06-21 16:28 | EXP.UTC ---
Discharge Plan Disposition Patient Disposition: Home, Self-Care Condition: Good Prescriptions Prescriptions: New oseltamivir [Tamiflu] 75 mg capsule 75 mg PO BID 5 Days Qty: 10 0RF No Action escitalopram oxalate 10 mg tablet See Rx Instructions .ROUTE .COMPLEX Qty: 90 0RF Dose Instruction: TAKE 1 TABLET BY MOUTH ONCE DAILY FOR DEPRESSION Rx Instructions: TAKE 1 TABLET BY MOUTH ONCE DAILY FOR DEPRESSION norgestimate-ethinyl estradiol [Sprintec (28)] 0.25-35 mg-mcg tablet See Rx Instructions .ROUTE .COMPLEX Qty: 84 3RF Dose Instruction: Take 1 tablet by mouth once daily Rx Instructions: Take 1 tablet by mouth once daily Referrals Follow up/Referrals: India Kessler PA [Primary Care Provider] - See instructions Activity Restrictions/Add. Instructions Additional Instructions/Restrictions: Monitor Temp, Over the counter Motrin or Tylenol as directed/as needed Tylenol every 4 hours and Motrin every 6 hours (as long as your family doctor has told you that you can take it) for fever or pain. and straight to ER if unable to lower temp less than 101.0 after medication given *Warm salt water gargles may help to soothe the throat *Throat Lozenges? *Warm fluids like tea with honey may help to soothe the throat? *Sleep elevated *Humidifier/Vaporizer Follow up IMMEDIATELY for new or worsening symptoms or no Noticeable improvement over the next 48-72 hours. 911 for difficulty breathing or swallowing ? You were tested for today for Rapid COVID19 and Influenza A & B,?your test result should be back in the few hours, and the results be available for you to view on the [facility] [employer] [facility] Portal Clinical Impressions Clinical Impression: Viral syndrome Stand Alone Forms Stand Alone Forms: Work/School Release Instructions Patient Instructions: DI for Viral Syndrome Print Language Print Language: Swedish Discharge ED Provider: Ashley Bejarano [facility] [place] HPI General Stated complaint: exp-flu,covid pneu Mode of Arrival: Ambulatory Source of Information: Patient Limitations: No Limitations Time Seen by Provider: 06/21/24 16:28 Description of Symptoms (Recalled from Triage Doc. by RN): PATIENT C/O HEADACHE, COUGH, CHILLS, BODY ACHES, AND DRAINAGE SINCE YESTERDAY HEENT Symptoms (Recalled from RN notes): Yes Resp Symptoms (Recalled from RN notes): Yes Skin Symptoms (Recalled from RN notes): No MS Symptoms (Recalled from RN notes): No Functional Status (Recalled from RN notes): WNL History of Present Illness Provider Complaint: Patient states that she has been around flu and COVID states that she started having symptoms last night with body aches, chills, felt like she had a fever and nasal congestion so she came in today to get checked Related Data Previous Rx's ?Medication ?Instructions ?Recorded escitalopram oxalate 10 mg tablet See Rx Instructions .Route 03/03/24 .COMPLEX #90 tabs norgestimate 0.25 mg-ethinyl See Rx Instructions .Route 06/11/24 estradiol 35 mcg tablet (Sprintec .COMPLEX #84 tabs (28)) oseltamivir 75 mg capsule (Tamiflu) 75 mg PO BID 5 days #10 caps 06/21/24 Allergies Allergy/AdvReac Type Severity Reaction Status Date / Time ciprofloxacin (From Cipro) Allergy Verified 12/30/23 13:42 nitrofurantoin (From Allergy Verified 12/30/23 13:42 Macrobid) Worker's Comp Is this a Worker's Comp case?: No [facility] Disclaimer: The information contained in this section may have been updated after the patient was seen, as this information can be updated by other users. Medical History Abnormal cervical Papanicolaou smear Anxiety Surgical History History of delivery Family History Other No significant family history Social History Smoking Status: Never smoker second hand exposure: No alcohol intake: never substance use type: denies use current occupational status: employed Travel in the last 8 weeks: None household members: significant other housing: house current occupation: [employer] current occupational exposures/hazards: No caffeine: Yes Have you lived/traveled outside US in past 30 days?: No Contact w/someone who lives/traveled outside US past 30 days?: No Exposure to someone with infectious disease in past 14 days?: Yes Do you have a fever (greater than 100.4 F or 38 C)?: No Have you tested positive for COVID-19: No Exposed to someone with COVID-19 in past 14 days?: Yes Do you have a sore throat?: No Do you have a cough?: Yes Do you have any weakness?: Yes Do you have any diarrhea?: No Are you experiencing any unusual bleeding?: No Do you have any muscle aches/pain?: No Do you have any abdominal pain?: No Are you experiencing loss of taste or smell?: No ROS Obtained: Yes All systems reviewed & no additional complaints except as documented and Yes Systems reviewed as appropriate & no additional complaints except as documented Constitutional Constitutional: Reports system reviewed and no additional complaints, except as documented, Reports as per HPI, Reports body ache, Reports chills, Reports fever(s) and Reports headache(s) ENT Ears, Nose, Mouth, and Throat: Reports system reviewed and no additional complaints, except as documented, Reports as per HPI, Reports headache(s) and Reports nasal congestion Cardiovascular Cardiovascular: Reports system reviewed and no additional complaints, except as documented and Reports as per HPI Respiratory Respiratory: Reports system reviewed and no additional complaints, except as documented, Reports as per HPI, Denies shortness of breath, Denies chest congestion, Reports cough and Denies wheezing Gastrointestinal Gastrointestingal: Reports system reviewed and no additional complaints, except as documented and as per HPI Neurologic Neurologic: Reports headache(s) Allergic/Immunologic Allergic/Immunologic: Denies wheezing Physical Exam General General appearance: alert and in no apparent distress ENT ENT exam: Present mucous membranes moist and TM's normal bilaterally Expanded ENT Exam Nose exam: Absent sinus tenderness Throat exam: Present normal inspection Respiratory Respiratory exam: Present normal lung sounds bilaterally; Absent respiratory distress or wheezes Cardiovascular Cardiovascular exam: Present regular rate, normal rhythm and normal heart sounds Abdominal Exam Abdominal exam: Present soft and normal bowel sounds; Absent distention or tenderness Neurological Exam Neurological exam: Present alert, oriented X3 and normal gait Medical Decision Making Medical Records Screening: Per USPSTF and CDC recommendations, given the prevalence of disease in our region, it is our hospital?s policy to screen for HIV and viral Hepatitis for all patients aged 18 and over and those with ongoing risk factors. Amadeo Inquiry Pt receiving controlled substance: No Amadeo was queried for this patient: No Vital Signs: 06/21/24 16:15 Temperature 98.8 F Temperature Source Oral Pulse Rate [Left Brachial] 76 Respiratory Rate 19 Blood Pressure [Left Arm] 151/89 H Blood Pressure Mean [Left Arm] 109 Blood Pressure Source [Left Arm] Automatic Cuff Blood Pressure Position [Left Arm] Sitting 02 Sat by Pulse Oximetry 99 Oxygen Delivery Method Room Air Orders (Tests/Meds): ORDERS Category Date Time Status Rapid PCR Covid and Flu A/B Stat Lab 06/21/24 16:14 Received
[2024-06-21 16:34] VITALS: BP 151/89; PULSE 76; RESP 19; TEMP 37.1; O2SAT 99
[2024-06-21 17:32] LABS: Influenza A, PCR Detected (NotDetected)
== END 2024-06-21 16:37 | disposition home or self-care (01) ==
PROVIDERS: Emergency Provider Nurse Practitioner; PCP Physician Assistant
DX: B34.9 Viral infection, unspecified (principal)
CPT/HCPCS: 87636; 99213; G0381

== ENCOUNTER 2024-07-21 22:45 | Outpatient (CLI) | payer BC, OTHER, SELFPAY ==
[2024-07-22 09:45] LABS: MANUAL DIFFERENTIAL MANUAL DIFFERENTIAL (MANUAL DIFF)
[2024-07-22 10:48] LABS: Basophils # 0.1 K/mm3 (0-0.2); Basophils % 1.2 % (0.1-2.0); Eosinophils % 0.4 % (0.1-12.0); Hematocrit 42.6 % (37.0-47.0); Lymphocytes % 38.8 % (10-50); Mean Corpuscular HGB Conc 32.9 g/dL (31.8-35.4); Mean Corpuscular Hemoglobin 30.8 pg (27.0-31.2); Mean Corpuscular Volume 93.6 fl (81-99); Mean Platelet Volume 11.6 fl (7.4-10.4); Monocytes # 0.4 K/mm3 (0.1-1.0); Monocytes % 7.5 % (1.7-9.3); Neutrophils # 2.6 K/mm3 (1.8-7.8); Neutrophils % 51.9 % (37.0-80.0); Platelet Count 321 K/mm3 (142-424); Red Blood Count 4.55 M/mm3 (4.20-5.40); Red Cell Distribution Width 12.4 % (11.5-17.5)
[2024-07-22 12:55] LABS: Corrected White Blood Count 5.1 K/mm3 (4.8-10.8); White Blood Count 5.1 K/mm3 (4.8-10.8)
[2024-07-22 13:22] LABS: Lymphocytes % 34 % (10-50); Monocytes % 5 % (2-9); Neutrophils % 60 % (42-76); Total Cells Counted 100
[2024-07-22 13:23] LABS: Platelet Estimate Normal; RBC Morphology Normal
== END 2024-07-21 23:59 | disposition home or self-care (01) ==
LOC: LAB.DROPOF 22:46
PROVIDERS: PCP Family Medicine; Visit Provider Family Medicine
DX: Z00.00 Encounter for general adult medical examination without abnormal findings (principal); E66.3 Overweight
CPT/HCPCS: 85007; 85014; 85018; 85048; 85049

== ENCOUNTER 2024-08-02 20:19 | Outpatient (CLI) | payer BC, OTHER, SELFPAY ==
[2024-08-02 22:31] LABS: Alanine Aminotransferase 28 U/L (12-78); Albumin Level 3.9 g/dl (3.5-5.0); Albumin/Globulin Ratio 1.4 (1.1-1.8); Alkaline Phosphatase 65 U/L (38-126); Aspartate Amino Transferase 35 U/L (14-36); Bilirubin,Total 0.3 mg/dl (0.2-1.3); Blood Urea Nitrogen 11 mg/dl (7-17); Calcium 9.4 mg/dl (8.4-10.2); Carbon Dioxide 24 mmol/L (22.0-30.0); Chloride 105 mmol/L (98-107); Chol/HDL Ratio 3.5 (1-3.5); Cholesterol 223 mg/dl (140-200); Estimated Glomerular Filt Rate 86 ml/min (>60); GFR (African American) 104 ML/MIN (>60); Globulin 2.7 g/dL (1.3-3.2); Glucose 87 mg/dl (74-100); HDL Cholesterol 63 mg/dl (40-60); Sodium 135 mmol/L (136-145); Total Protein,Serum 6.6 g/dl (6.3-8.2); Triglycerides 245 mg/dl (30-150); VLDL Cholesterol 49 mg/dL (0-40)
[2024-08-02 22:48] LABS: 25-OH Vitamin D, Total 14.2 ng/mL (30-100)
[2024-08-02 23:02] LABS: Thyroid Stimulating Hormone 2.04 uIU/mL (0.465-4.68)
== END 2024-08-02 23:59 | disposition home or self-care (01) ==
LOC: LAB.DROPOF 20:20
PROVIDERS: PCP Family Medicine; Visit Provider Family Medicine
DX: Z00.00 Encounter for general adult medical examination without abnormal findings (principal); E66.3 Overweight
CPT/HCPCS: 80053; 80061; 82306; 84443

== ENCOUNTER 2024-10-03 10:30 | Outpatient (CLI) | payer BC, OTHER, SELFPAY | END 2024-10-03 23:59 | disposition home or self-care (01) | LOC: LAB.DROPOF 10-04 09:30 | PROVIDERS: PCP Nurse Practitioner; Visit Provider Nurse Practitioner | DX: R35.0 Frequency of micturition (principal); N39.0 Urinary tract infection, site not specified; B96.20 Unspecified Escherichia coli [E. coli] as the cause of diseases classified elsewhere | CPT/HCPCS: 87086; 87088; 87186 ==

== ENCOUNTER 2025-02-07 13:36 | Outpatient (CLI) | payer BC, OTHER, SELFPAY ==
--- OUTSIDE RECORDS SUMMARY | 2025-02-07 13:38 | XMS_ITS | Clinical Summary ---
Author Organization [facility] Address [address] [place] [address] Care Team Providers Care Media Associate Name Role Phone Provider, No Known Primary Care Provider Unavail able Allergies Active Allergy Reactions Criticality Noted Date Comments Ciprofloxacin Hcl Rash Low 11/01/2021 Nitrofurantoin Rash Low 11/01/2021 Medications GUMMY VITAMIN Chew 2 each Daily. Active FOLIC ACID PO Take 1 tablet by mouth Daily. Active Ferrous Sulfate (IRON PO) Take 1 tablet by mouth Daily. Active Escitalopram Oxalate (LEXAPRO PO) Take 1 tablet by mouth Daily. Active Active Problems Problem Noted Date Diagnosed Date Polyhydramnios in third trimester 11/01/2021 Social History Tobacco Use Types Packs/Day Years Used Date Smoking Tobacco: Never Alcohol Use Standard Drinks/Week Comments Yes 0 (1 standard drink = 0.6 oz pur e alcohol) social when not Abuse Screen Answer Date Recorded Unsafe at Home or Work/School Not on file Feels Threatened by Someone? Not on file Does Anyone Keep You from Co ntacting Others or Doint Things Outside the Home? Not on file 03/07/2023 Physical Sign of Abuse Present Not on file 1 Housing Stability Answer Date Recorded Current Living Arrangements Not on file 02/23 Potentially Unsafe Housing Conditions Not on jus e 03/07/2023 Family and Community Support Answer Jose e Recorded Help with Day-to-Day Activities Not on file 03/07/2023 Lonely or Isolated Not on file 03/07/2023 Employment Answer Date Recorded Do you want help finding or keeping work or a gabriele b? Not on file 03/07/2023 Disabilities Answer Date Recorded Concentrating, Remembering, or Making Decisions Difficulty Not on file 03/07/2023 Doing Errands Independently Difficulty Not on fi le 03/07/2023 Education Answer Date Recorded Help with school or training? Not on file Preferred Language Not on file 03/07/2023 Comments No Sex and Gender Information Value Date Recorded Sex Assigned at Not on file Legal Sex Female 3:16 PM EDT Gender Identity Not on file Sexual Orientation Not on file Last Filed Vital Signs Vital Sign Reading Time Taken Comments Blood Pressure 136/78 11/29/2021 1:33 PM EDT Pulse - - Temperature - - Respiratory Rate - - Oxygen Saturation - - Inhaled Oxygen Concentration - - Weight 88.5 kg (195 lb) 11/29/2021 1:33 PM EDT Height 160 cm (5' 3 ) 11/01/2021 11:34 AM EDT Body Mass Index 34.54 11/01/2021 11:34 AM EDT Plan of Treatment Health Maintenance Due Date Last Done Comments Annual Gynecologic Pelvic an d Breast Exam 1997 TDAP/TD VACCINES (2 - Td or Tdap) 07/26/2018 07/26/2008 ANNUAL PHYSICAL 10/31/2021 HEPATITIS C SCREENING 10/31/2021 COVID-19 Vaccine (3 - 2024-2 6 season) 2025 06/23/2020, 05/25/2020 INFLUENZA VACCINE 02/23/2025 Pneumococcal Vaccine 0-49 Aged Out No longer eligible based on patient's age to complete this topic Insurance Care Teams Media Associate Relationship Specialty Start Date End Date Provider, [place] [address] PCP - General 10/31/21
== END 2025-02-07 23:59 | disposition home or self-care (01) ==
LOC: LAB 13:37
PROVIDERS: PCP Family Medicine; Visit Provider Obstetrics & Gynecology
DX: N92.6 Irregular menstruation, unspecified (principal)
CPT/HCPCS: 36415; 84702

== ENCOUNTER 2025-02-19 08:19 | Outpatient (CLI) | payer BC, OTHER, SELFPAY ==
--- OUTSIDE RECORDS SUMMARY | 2025-02-22 08:24 | XMS_ITS | Clinical Summary ---
Author Organization [facility] Address [address] [place] [address] Care Team Providers Care Inspector Balance Bridge Name Role Phone Provider, No Known Primary [...] help finding or keeping work or a gabrieel b? Not on file 03/07/2023 Disabilities Answer [...] VACCINES (2 - Td or Tdap) 07/26/2018 009 ANNUAL PHYSICAL 10/31/2021 HEPATITIS C SCREENING 10/31/2021 INFLUENZA VACCINE 12/24/2024 Pneumococcal Vaccine 0-49 Aged Out No longer eligible based on patient's age to complete this topic Insurance [employer] Care Teams Inspector Balance Bridge Relationship Specialty Start Date End Date Provider, [place] [address] PCP - General 10/31/21
== END 2025-02-19 23:59 ==
LOC: LAB.DROPOF 02-22 08:19
PROVIDERS: PCP Family Medicine; Visit Provider Nurse Practitioner Family
DX: J02.9 Acute pharyngitis, unspecified (principal)
CPT/HCPCS: 87070

== ENCOUNTER 2025-03-18 16:31 | Outpatient (CLI) | payer BC, OTHER, SELFPAY ==
--- OUTSIDE RECORDS SUMMARY | 2025-03-18 16:33 | XMS_ITS | Clinical Summary ---
Author Organization [facility] Address [address] [place] [address] Care Team Providers Care Manager Consumer Insights Name Role Phone Provider, No Known Primary [...] complete this topic Insurance [employer] Care Teams Manager Consumer Insights Relationship Specialty Start Date End Date Provider, [place] [address] PCP - General 10/31/21
== END 2025-03-18 23:59 | disposition home or self-care (01) ==
LOC: LAB 16:32
PROVIDERS: PCP Family Medicine; Visit Provider Nurse Practitioner Obstetrics & Gynecology
DX: Z34.90 Encounter for supervision of normal pregnancy, unspecified, unspecified trimester (principal); N92.6 Irregular menstruation, unspecified
CPT/HCPCS: 36415; 84144; 84702

== ENCOUNTER 2025-03-23 16:47 | Outpatient (CLI) | payer BC, OTHER, SELFPAY ==
--- OUTSIDE RECORDS SUMMARY | 2025-03-23 16:49 | XMS_ITS | Clinical Summary ---
Author Organization [facility] Address [address] [place] [address] Care Team Providers Care Electrode Cleaning Machine Operator Name Role Phone Provider, No Known Primary [...] complete this topic Insurance [employer] Care Teams Electrode Cleaning Machine Operator Relationship Specialty Start Date End Date Provider, [place] [address] PCP - General 10/31/21
== END 2025-03-23 23:59 | disposition home or self-care (01) ==
LOC: LAB 16:47
PROVIDERS: PCP Family Medicine; Visit Provider Nurse Practitioner Obstetrics & Gynecology
DX: Z34.90 Encounter for supervision of normal pregnancy, unspecified, unspecified trimester (principal); Z3A.00 Weeks of gestation of pregnancy not specified
CPT/HCPCS: 36415; 84702

== ENCOUNTER 2025-04-09 11:01 | Outpatient (CLI) | payer BC, OTHER, SELFPAY ==
[2025-04-09 11:59] LABS: Hematocrit 39.2 % (37.0-47.0); Hemoglobin 13.4 g/dL (12.2-16.2); Immature Granulocytes % 0.3 %; Mean Corpuscular HGB Conc 34.2 g/dL (31.8-35.4); Mean Corpuscular Hemoglobin 31.1 pg (27.0-31.2); Mean Corpuscular Volume 91.0 fl (81-99); Nucleated Red Blood Cells % 0 %; Platelet Count 331 K/mm3 (142-424); Red Blood Count 4.31 M/mm3 (4.20-5.40); Red Cell Distribution Width-SD 41.9 fL; White Blood Count 6.3 K/mm3 (4.8-10.8)
[2025-04-09 13:02] LABS: RPR W/RFX Titers Nonreactive (Nonreactive)
[2025-04-09 13:57] LABS: Hepatitis C Ab Qual. W/ RFX NEGATIVE (Negative)
[2025-04-10 08:14] LABS: Hepatitis B Surface Antigen Negative (Negative)
[2025-04-10 10:52] LABS: Rubella Antibodies, IgG 1.49 index (Immune >0.99)
== END 2025-04-09 23:59 | disposition home or self-care (01) ==
LOC: LAB 11:03
PROVIDERS: PCP Family Medicine; Visit Provider Nurse Practitioner Obstetrics & Gynecology
DX: Z34.91 Encounter for supervision of normal pregnancy, unspecified, first trimester (principal); Z3A.00 Weeks of gestation of pregnancy not specified
CPT/HCPCS: 36415; 85025; 86592; 86762; 86787; 86803; 86850; 87340; 87389